=== PATIENT | female | born 1940 | race Hispanic/Latino ===

== ENCOUNTER 2017-02-05 04:41 | Emergency (ER) | payer MEDICARE ==
[2017-02-05 04:57] VITALS: BMI 25.0
--- NOTE | 2017-02-05 05:30 | ED PDOC ---
Arrival/HPI - General Chief Complaint: Trauma Time Seen by Provider: 02/05/17 04:49 Historian: Patient - History of Present Illness Narrative History of Present Illness (Text): 02/05/17 05:25 76 year old female whose past medical history includes hypertension, hyperlipidemia, CAD with stents x6, spinal stenosis, hysterectomy, and left leg edilson implant presents to the Emergency department via EMS s/p mechanical fall [employer]. Patient reports she tripped over her sheets while getting out of bed and hit her lower right side on the nightstand when she fell. She notes right sided abdominal and back pain. She denies any head trauma, LOC, or dizziness. PMD: Dr. Saucedo Time/Duration: Prior to Arrival Symptom Onset: Sudden Symptom Course: Unchanged Context: Tripped Past Medical History - Provider Review Nursing Documentation Reviewed: Yes - Infectious Disease Hx of Infectious Diseases: None - Reproductive Menopause: Yes - Cardiac Hx Cardiac Disorders: Yes Hx Hypertension: Yes - Musculoskeletal/Rheumatological Hx Falls: Yes - Psychiatric Hx Psychophysiologic Disorder: No Hx Anxiety: No Hx Bipolar Disorder: No Hx Depression: No Hx Emotional Abuse: No Hx Hallucinations: No Hx Panic Disorder: No Hx Post Traumatic Stress Disorder: No Hx Psychosis: No Hx Physical Abuse: No Hx Schizophrenia: No Hx Sexual Abuse: No Hx Substance Use: No - Surgical History Hx Cardiac Catheterization: Yes Hx Coronary Stent: Yes - Anesthesia Hx Anesthesia: Yes Hx Anesthesia Reactions: Yes Hx Malignant Hyperthermia: No - Suicidal Assessment Feels Threatened In Home Enviroment: No Family/Social History - Physician Review Nursing Documentation Reviewed: Yes Family/Social History: Unknown Family HX Smoking Status: Never Smoked Hx Alcohol Use: No Hx Substance Use: No Allergies/Home Meds Allergies/Adverse Reactions: Allergies No Known Allergies Allergy (Verified 08/23/15 11:37) Home Medications: Home Meds Medication Instructions Recorded Confirmed Aspirin [Aspir 81] 81 mg PO DAILY 11/02/12 04/02/16 Metoprolol Succinate 25 mg PO BID 11/02/12 04/02/16 Omeprazole 20 mg PO DAILY 08/23/15 04/02/16 Alprazolam [Xanax] 0.25 mg PO HS 04/02/16 04/02/16 Naproxen [Naprosyn] 500 mg PO DAILY 04/02/16 04/02/16 Simvastatin [Simvastatin] 40 mg PO DAILY 04/02/16 04/02/16 Review of Systems - Physician Review All systems were reviewed & negative as marked: Yes - Review of Systems Constitutional: absent: Fevers, Other (no LOC) Respiratory: absent: SOB, Cough Cardiovascular: absent: Chest Pain, Syncope Gastrointestinal: absent: Abdominal Pain, Diarrhea, Nausea, Vomiting Musculoskeletal: Other (+left sided abdominal and back pain) Neurological: absent: Headache, Dizziness Physical Exam Vital Signs Reviewed: Yes Vital Signs Temp Pulse Resp BP Pulse Ox 02/05/17 06:46 98 F 75 19 131/71 99 02/05/17 05:58 98.2 F 90 17 144/68 98 02/05/17 04:57 98.4 F 89 16 136/72 97 Temperature: Afebrile Blood Pressure: Normal Pulse: Regular Respiratory Rate: Normal Appearance: Positive for: Well-Appearing, Non-Toxic, Comfortable Pain Distress: None Mental Status: Positive for: Alert and Oriented X 3 - Systems Exam Head: Present: Atraumatic, Normocephalic Pupils: Present: PERRL Extroacular Muscles: Present: EOMI Conjunctiva: Present: Normal Mouth: Present: Moist Mucous Membranes Neck: Present: Normal Range of Motion Respiratory/Chest: Present: Clear to Auscultation, Good Air Exchange. No: Respiratory Distress, Accessory Muscle Use, Wheezes, Rales, Rhonchi, Other Cardiovascular: Present: Regular Rate and Rhythm, Normal S1, S2. No: Murmurs, Rub, Gallop Abdomen: Present: Normal Bowel Sounds, Other (+abrasion to right abdomen with tenderness, no active bleeding). No: Tenderness, Distention, Peritoneal Signs, Rebound, Guarding Genitourinary/Pelvic Exam: Present: Adenexal Tenderness Back: Present: Normal Inspection, Other (+abrasion to right posterior with tenderness, no active bleeding) Upper Extremity: Present: Normal Inspection. No: Cyanosis, Edema Lower Extremity: Present: Normal Inspection. No: Edema Neurological: Present: GCS=15, CN II-XII Intact, Speech Normal Skin: Present: Warm, Dry, Normal Color, Abrasion (see: skin and back). No: Rashes Psychiatric: Present: Alert, Oriented x 3, Normal Insight, Normal Concentration Medical Decision Making ED Course and Treatment: 02/05/17 05:35 Impression: 76 year old female s/p mechanical fall. Physical exam revealed abrasion and tenderness to right abdomen and posterior. Rule out organ injury or fracture. Plan: --CT Abdomen/Pelvis --EKG --Toradol -- Reassess and disposition Prior Visits: Notes and results from previous visits were reviewed. Progress Notes: 02/05/17 07:02 I discussed with patient's PMD Dr. Saucedo her EKG findings. He states these are old findings. Patient denies any chest pain or upper abdominal pain. Patient denies any dizziness or ligtheadedness. CT reviewed with Radiologist. Lung nodules were noted and he states they can be followed up in 3-6 months. There is a comment about possible infectious cause. I discussed this with patient. She states she has Sarcoidosis and knows about these nodules. She denies any fever, shortness of breathe, cough, weakness, bodyaches or any other concerns. Patient was given a copy of her CT to review with her doctor. Patient was able to stand up and walk at her baseline. She walks with a walker. Her daughter will take her home. - Lab Interpretations I have reviewed the lab results: No - RAD Interpretation Radiology Orders: 02/05/17 04:58 ABD & PELVIS W/O PO OR IV CONT [CT] Stat Finding Fastener: Radiologist - EKG Interpretation EKG Interpretation (Text): 02/05/17 05:37 EKG: Ordered, reviewed, and independently interpreted the EKG. Rate : 89 BPM Rhythm : NSR Interpretation : nonspecific ST changes Comparison : similar to previous per patient's PMD Dr. José Saucedo Interpreted by ED Physician: Yes Type: 12 lead EKG Comparison: Similar to previous EKG - Medication Orders Current Medication Orders: Discontinued Medications Ketorolac Tromethamine (Toradol) 30 mg IM STAT STA Stop: 02/05/17 05:00 Last Admin: 02/05/17 05:40 Dose: 30 MG IM Administration Charges Document 02/05/17 05:40 RD (Rec: 02/05/17 05:40 RD [id number]) Injection Site MAR Injection Site Left Deltoid Charges for Administration # of IM Administrations 1 - Scribe Statement The provider has reviewed the documentation as recorded by the Scribe Tracy Baptiste Provider Scribe Attestation: All medical record entries made by the Scribe were at my direction and personally dictated by me. I have reviewed the chart and agree that the record accurately reflects my personal performance of the history, physical exam, medical decision making, and the department course for this patient. I have also personally directed, reviewed, and agree with the discharge instructions and disposition. Disposition/Present on Arrival - Present on Arrival Any Indicators Present on Arrival: No History of DVT/PE: No History of Uncontrolled Diabetes: No Urinary Catheter: No History of Decub. Ulcer: No History Surgical Site Infection Following: Orthopedic Procedures - Disposition Have Diagnosis and Disposition been Completed?: Yes Diagnosis: Fall, Abrasion, Pulmonary nodules, Sarcoidosis Disposition: HOME/ ROUTINE Disposition Time: 07:10 Patient Plan: Discharge Condition: IMPROVED Discharge Instructions (ExitCare): Abrasion (ED) Additional Instructions: Ms Lopez, thank you for letting us take care of you today. Your provider was Dr. Godfrey. You were treated for Tripped and Fall, Abrasion. The emergency medical care you received today was directed at your acute symptoms. If you were prescribed any medication, please fill it and take as directed. It may take several days for your symptoms to resolve. Return to the Emergency Department if your symptoms worsen, do not improve, or if you have any other problems. Please contact your doctor or call one of the physicians/clinics you have been referred to that are listed on the Patient Visit Information form that is included in your discharge packet. Bring any paperwork you were given at discharge with you along with any medications you are taking to your follow up visit. Our treatment cannot replace ongoing medical care by a primary care provider (PCP) outside of the emergency department. Review CT results with your doctor. You will need repeat imagining in 3- 6months. Thank you for allowing the [facility] team to be part of your care today. If you had an X-Ray or CT scan: A Radiologist will review the ED reading if any change in treatment is needed we will contact you. If you had a blood, urine, or wound culture: It will take several days for the results, if any change in treatment is needed we will contact you. If you had an STI test: It will take 48 hours for the results. Please call after 1 week if you have not heard back. Prescriptions: Acetaminophen [Tylenol 325mg tab] 650 mg PO Q4 #60 tab Referrals: Raghav Saucedo MD [Primary Care Provider] - Follow up with primary
--- NOTE | 2017-02-05 06:10 | CT ---
EXAM: CT Abdomen and Pelvis Without Intravenous Contrast. CLINICAL HISTORY: 76 years old, female; Pain; Abdominal pain; Generalized; Additional info: Fall to r low back/side R/O organ injury R/O lumfx TECHNIQUE: Axial computed tomography images of the abdomen and pelvis without intravenous contrast. This CT exam was performed using one or more of the following dose reduction techniques: automated exposure control, adjustment of the mA and/or kV according to patient size, and/or use of iterative reconstruction technique. Coronal and sagittal reformatted images were created and reviewed. COMPARISON: No relevant prior studies available. FINDINGS: Lower thorax: There are mediastinal and bilateral hilar calcified lymph nodes compatible with prior granulomatous exposure. There is associated mediastinal and bilateral hilar lymphadenopathy. Multiple clustered small pulmonary nodules in the right middle lobe and near the right minor fissure. These are most suggestive of an infectious process. There is minimal bibasilar atelectasis. Calcified granuloma in the left lower lobe. There is coronary artery calcification. Small hiatal hernia. Small calcified paraesophageal lymph node near the distal esophagus. ABDOMEN: Liver: There are no focal liver lesions present. Gallbladder and bile ducts: There has been a cholecystectomy. No ductal dilation. Pancreas: Pancreas is partially fatty replaced. No ductal dilation. Spleen: The spleen is normal. Adrenals: The adrenal glands are normal. Kidneys and ureters: The kidneys are normal. No obstructing stones. No hydronephrosis. Stomach and bowel: Stomach is predominantly decompressed. There is severe colonic diverticulosis without convincing evidence for acute diverticulitis. There is mild colonic constipation. There is no evidence of intestinal obstruction. Appendix: The appendix is not visualized but there is no pericecal inflammation to suggest appendicitis. PELVIS: Bladder: Bladder is predominantly decompressed and contains a few tiny gas bubbles. This is most suggestive of recent catheterization. Please correlate clinically. Reproductive: There has been a hysterectomy. ABDOMEN and PELVIS: Intraperitoneal space: There is no evidence of free intraperitoneal fluid. There is no free intraperitoneal air. Bones/joints: There is a screw traversing the left femoral neck presumably securing an old fracture. There are moderate degenerative changes present. There is moderate diffuse osteopenia. There is mild grade 1 retrolisthesis of L1 on L2. No dislocation. Soft tissues: Unremarkable. Vasculature: The aorta demonstrates moderate atherosclerotic calcification. No abdominal aortic aneurysm. Lymph nodes: There is no evidence of lymphadenopathy. IMPRESSION: 1. There are mediastinal and bilateral hilar calcified lymph nodes compatible with prior granulomatous exposure. There is associated mediastinal and bilateral hilar lymphadenopathy. 2. Multiple clustered small pulmonary nodules in the right middle lobe and near the right minor fissure. These are most suggestive of an infectious process. 3. Bladder is predominantly decompressed and contains a few tiny gas bubbles. This is most suggestive of recent catheterization. Please correlate clinically. 4. Additional incidental and/or chronic findings as described.
[2017-02-05 06:47] VITALS: BP 131/71; PULSE 75; RESP 19; TEMP 98; O2SAT 99
--- NOTE | 2017-02-05 10:19 | CARD ---
APPROVED REPORT EKG Measurement Heart [id number] <Conclusion> Normal sinus rhythm Right bundle branch block Possible Inferior infarct, age undetermined Possible lateral wall PA, age unknown Mild ST elevation 2,3,F, V 3 - 6
== END 2017-02-05 06:48 | disposition home or self-care (01) ==
LOC: ED 04:41
DX: R91.8 Other nonspecific abnormal finding of lung field (principal); D86.9 Sarcoidosis, unspecified; S30.811A Abrasion of abdominal wall, initial encounter; S30.810A Abrasion of lower back and pelvis, initial encounter; W06.XXXA Fall from bed, initial encounter; I10 Essential (primary) hypertension; I25.10 Atherosclerotic heart disease of native coronary artery without angina pectoris; E78.5 Hyperlipidemia, unspecified
CPT/HCPCS: 74176; 93005; 96372; 99284; J1885

== ENCOUNTER 2017-10-25 21:17 | Observation (INO) | payer MEDICARE ==
[2017-10-25 21:17] VITALS: BMI 25.0
[2017-10-25] MEDS ORDERED: Sodium Chloride 0.9% 1,000 ML IV STA (21:44)
[2017-10-25] MEDS ORDERED: Morphine 2 mg/ml ISec IVP STA (21:55)
--- NOTE | 2017-10-25 22:00 | ED PDOC ---
Arrival/HPI - General Chief Complaint: Abdominal Pain Time Seen by Provider: 10/25/17 21:44 Historian: Patient - History of Present Illness Narrative History of Present Illness (Text): 10/25/17 21:54 A 77 year old female, whose past medical history includes hypertension, hyperlipidemia, CAD with 6 stents, s/p total abdominal hysterectomy, cholecystectomy, appendectomy and diverticulitis, presents to the emergency department complaining of left lower quadrant and suprapubic pain for 1 day. Patient denies any relieving or exacerbating factors. She notes 2 episodes of non-bilious non-bloody vomiting but states she has been able to tolerate PO intake since. Patient denies any fever, chills, chest pain, shortness of breath or any other complaints. Time/Duration: Other (1 day) Symptom Course: Unchanged Quality: Other Context: Home Past Medical History - Provider Review Nursing Documentation Reviewed: Yes - Infectious Disease Hx of Infectious Diseases: None - Cardiac Hx Cardiac Disorders: Yes Hx Hypertension: Yes Other/Comment: 6 stents - Pulmonary Hx Respiratory Disorders: No - Neurological Hx Neurological Disorder: No - HEENT Hx HEENT Disorder: No - Renal Hx Renal Disorder: No - Endocrine/Metabolic Hx Endocrine Disorders: No - Hematological/Oncological Hx Blood Disorders: Yes Hx Blood Transfusions: Yes Hx Blood Transfusion Reaction: No Other/Comment: hx of vaginal hemm. - Integumentary Hx Dermatological Disorder: No - Musculoskeletal/Rheumatological Hx Falls: Yes - Gastrointestinal Hx Clostridium Difficile: No - Psychiatric Hx Psychophysiologic Disorder: No Hx Anxiety: No Hx Bipolar Disorder: No Hx Depression: No Hx Emotional Abuse: No Hx Hallucinations: No Hx Panic Disorder: No Hx Post Traumatic Stress Disorder: No Hx Psychosis: No Hx Physical Abuse: No Hx Schizophrenia: No Hx Sexual Abuse: No Hx Substance Use: No - Surgical History Hx Appendectomy: Yes Hx Cardiac Catheterization: Yes Hx Cholecystectomy: Yes Hx Coronary Stent: Yes (x6) Hx Musculoskeletal Surgery: Yes (L hip fx with edilson placed) - Anesthesia Hx Anesthesia: Yes Hx Anesthesia Reactions: Yes Hx Malignant Hyperthermia: No - Suicidal Assessment Feels Threatened In Home Enviroment: No Family/Social History - Physician Review Nursing Documentation Reviewed: Yes Family/Social History: No Known Family HX Smoking Status: Never Smoked Hx Alcohol Use: No Hx Substance Use: No Allergies/Home Meds Allergies/Adverse Reactions: Allergies No Known Allergies Allergy (Verified 08/23/15 11:37) Home Medications: Home Meds Medication Instructions Recorded Confirmed Aspirin [Aspir 81] 81 mg PO DAILY 11/02/12 10/25/17 Metoprolol Succinate 25 mg PO BID 11/02/12 10/25/17 Omeprazole 20 mg PO DAILY 08/23/15 10/25/17 Alprazolam [Xanax] 0.25 mg PO HS 04/02/16 10/25/17 Naproxen [Naprosyn] 500 mg PO DAILY 04/02/16 10/25/17 Simvastatin [Simvastatin] 40 mg PO DAILY 04/02/16 10/25/17 Review of Systems - Physician Review All systems were reviewed & negative as marked: Yes - Review of Systems Constitutional: absent: Fevers, Night Sweats Respiratory: absent: SOB Cardiovascular: absent: Chest Pain Gastrointestinal: Abdominal Pain, Vomiting Physical Exam Appearance: Positive for: Well-Appearing, Non-Toxic, Comfortable Pain Distress: None Mental Status: Positive for: Alert and Oriented X 3 - Systems Exam Head: Present: Atraumatic, Normocephalic Pupils: Present: PERRL Extroacular Muscles: Present: EOMI Conjunctiva: Present: Normal Mouth: Present: Moist Mucous Membranes Neck: Present: Normal Range of Motion Respiratory/Chest: Present: Clear to Auscultation, Good Air Exchange. No: Respiratory Distress, Accessory Muscle Use Cardiovascular: Present: Murmurs (Systolic ejection murmur at sternal borders), Normal S1, S2 Abdomen: Present: Tenderness (LLQ tenderness to palpation), Normal Bowel Sounds. No: Distention, Peritoneal Signs, Rebound, Guarding Back: Present: Normal Inspection Upper Extremity: Present: Normal Inspection. No: Cyanosis, Edema Lower Extremity: Present: Edema (trace edema bilaterally), NORMAL PULSES, Tenderness (Osteoarthritic pain). No: CALF TENDERNESS Neurological: Present: GCS=15, CN II-XII Intact, Speech Normal Skin: Present: Warm, Dry, Normal Color. No: Rashes Psychiatric: Present: Alert, Oriented x 3, Normal Insight, Normal Concentration Medical Decision Making ED Course and Treatment: 10/25/17 21:54 Impression: A 77 year old female with LLQ and suprapubic pain Plan: -- Abdomen CT -- Abdomen xray -- Chest xray -- EKG -- Labs -- Blood and Urine culture -- Urinalysis -- Morphine, Zofran and IV fluids -- Reassess and disposition Progress Notes: - Lab Interpretations I have reviewed the lab results: Yes - RAD Interpretation Radiology Orders: 10/25/17 21:44 ABD 2 VIEWS (FLAT/UP OR DECUB) [RAD] Stat 10/25/17 21:45 CHEST PORTABLE [RAD] Stat - Medication Orders Current Medication Orders: Sodium Chloride (Sodium Chloride 0.9%) 1,000 mls @ 100 mls/hr IV .Q10H STA Stop: 10/26/17 07:43 Discontinued Medications Ondansetron HCl (Zofran Inj) 4 mg IVP STAT STA Stop: 10/25/17 21:45 Disposition/Present on Arrival - Present on Arrival History of DVT/PE: No History of Uncontrolled Diabetes: No Urinary Catheter: No History of Decub. Ulcer: No History Surgical Site Infection Following: Orthopedic Procedures - Disposition
[2017-10-25] MEDS ORDERED: Iohexol 350 MG/100 ML VIAL ONE (22:07)
[2017-10-25] MEDS ORDERED: Iohexol 240 (50 ml) ONE (22:07)
[2017-10-25 22:29] LABS: BASO # 0.02 K/mm3 (0.0-2.0); BASO % 0.3 % (0.0-3.0); EOS # 0.2 (0.0-0.7); EOS % 2.8 % (1.5-5.0); GRAN # 4.4 (1.4-6.5); GRAN % 68.3 % (50.0-68.0); HEMATOCRIT 31.8 % (36.0-48.0); LYMPH # 1.1 (1.2-3.4); LYMPH % 17.1 % (22.0-35.0); MEAN CELL VOLUME 92.4 fl (80.0-105.0); MEAN CORPUSCULAR HEMOGLOBIN 31.7 pg (25.0-35.0); MEAN CORPUSCULAR HGB CONC 34.3 g/dl (31.0-37.0); MEAN PLATELET VOLUME 9.3 fl (7.0-11.0); MONO # 0.7 (0.1-0.6); MONO % 11.5 % (1.0-6.0); RED CELL DISTRIBUTION WIDTH 12.9 % (11.5-14.5); WHITE BLOOD COUNT 6.4 10^3/ul (4.5-11.0)
[2017-10-25 22:38] LABS: ALB/GLOB RATIO 1.3 (1.1-1.8); ALKALINE PHOSPHATASE 120 U/L (38-126); ALT/SGPT 24 U/L (7-56); AMYLASE 71 U/L (35-125); AST/SGOT 29 U/L (14-36); BILIRUBIN,TOTAL 0.8 mg/dL (0.2-1.3); BLOOD UREA NITROGEN 23 mg/dL (7-21); CALCIUM 9.2 mg/dL (8.4-10.5); CARBON DIOXIDE 24 mmol/L (21-33); CHLORIDE 103 mmol/L (98-107); GFR AFRICAN-AMERICAN 35; GLUCOSE,RANDOM 136 mg/dL (70-110); LIPASE 58 U/L (23-300); POTASSIUM 4.3 mmol/L (3.6-5.0); SODIUM 137 mmol/L (132-148); TOTAL PROTEIN 6.5 g/dL (5.8-8.3)
[2017-10-25 22:41] LABS: INR 1.15 (0.93-1.08); PARTIAL THROMBOPLASTIN TIME 28.8 Seconds (25.1-36.5)
[2017-10-25 22:48] LABS: TROPONIN I < 0.01 ng/mL
[2017-10-25 23:10] VITALS: TEMP 97.7
[2017-10-26 00:29] LABS: PH,URINE 6.5 (4.7-8.0); URINE BILIRUBIN NEGATIVE (NEGATIVE); URINE BLOOD TRACE-INTACT (NEGATIVE); URINE GLUCOSE (UA) NEGATIVE (NEGATIVE); URINE KETONE NEGATIVE (NEGATIVE); URINE LEUKOCYTE ESTERASE TRACE Leu/uL (NEGATIVE); URINE PROTEIN NEGATIVE mg/dL (<30 mg/dL); URINE UROBILINOGEN 0.2 E.U./dL (<1 E.U./dL)
[2017-10-26 00:33] LABS: URINE APPEARANCE CLEAR (CLEAR); URINE COLOR YELLOW (YELLOW)
[2017-10-26 00:41] LABS: URINE EPITHELIAL CELLS 0 - 2 /hpf (0-5); URINE RBC 0 - 2 /hpf (0-2); URINE WBC 0 - 2 /hpf (0-6)
--- NOTE | 2017-10-26 01:03 | ED PDOC ---
Physical Exam Vital Signs Temp Pulse Resp BP Pulse Ox 10/26/17 00:00 68 16 169/85 H 96 10/25/17 23:00 84 18 153/81 H 95 10/25/17 21:17 97.7 F 73 18 145/88 99 Medical Decision Making ED Course and Treatment: 10/25/17 23:00 Case endorsed to me by Dr. Obrien. Pending CT scan, re-evaluation, and final disposition. Pt presented for LLQ and suprapubic pain with vomiting. 10/26/17 03:09 reviewed radiology, CT Abdomen and Pelvis shows: Limitations: Lack of intravenous contrast. Lower thorax: Calcified mediastinal and hilar lymph nodes. Minimal atelectasis/ scarring. LEFT lower lobe calcified granuloma. Coronary artery calcifications. Small hiatal hernia. ABDOMEN: Liver: Unremarkable. No mass. Gallbladder and bile ducts: Cholecystectomy. No ductal dilation. Pancreas: No ductal dilation. No mass. Spleen: No splenomegaly. Adrenals: No mass. Kidneys and ureters: Mild/moderate scarring of kidneys. No renal calculi. No hydronephrosis. Stomach and bowel: Multiple scattered diverticula within colon. Mild mural thickening short segment of proximal sigmoid colon. Minimal stranding within adjacent fat. No obstruction. Appendix: No findings to suggest acute appendicitis. PELVIS: Bladder: Minimal air within lumen. Reproductive: Hysterectomy. ABDOMEN and PELVIS: Intraperitoneal space: No significant fluid collection. No free air. Bones/joints: Degenerative changes of spine. Postsurgical changes of LEFT femur. No acute fracture. Soft tissues: Small umbilical hernia containing fat. Vasculature: Mild atherosclerotic disease. No aneurysm. Lymph nodes: No pathologically enlarged lymph nodes. IMPRESSION: 1. Findings compatible with acute diverticulitis of sigmoid colon. Recommend endoscopy following resolution. 2. Air within bladder lumen. DDX: Recent instrumentation or cystitis. 3. Incidental/non-acute findings are described above. 10/26/17 03:[address] Alethea Vasquez, who is aware and agrees with plan. Accepts pt in to his service. Pt will go to [facility] observation for diverticulitis. - Lab Interpretations Lab Results: 10/25/17 22:23 10/25/17 22:23 Lab Results 10/26/17 00:00: Urine Color Yellow, Urine Appearance Clear, Urine pH 6.5, Ur Specific [place] <= 1.005, Urine Protein Negative, Urine Glucose (UA) Negative, Urine Ketones Negative, Urine Blood Trace-intact H, Urine Nitrate Negative, Urine Bilirubin Negative, Urine Urobilinogen 0.2, Ur Leukocyte Esterase Trace H , Urine RBC 0 - 2, Urine WBC 0 - 2, Ur Epithelial Cells 0 - 2 10/25/17 22:55: Lactic Acid 0.6 L 10/25/17 22:23: Sodium 137, Potassium 4.3, Chloride 103, Carbon Dioxide 24, Anion Gap 14, BUN 23 H, Creatinine 1.7 H, Est GFR ( Amer) 35, Est GFR ( Non-Af Amer) 29, Random Glucose 136 H, Calcium 9.2, Total Bilirubin 0.8, AST 29 , ALT 24, Alkaline Phosphatase 120, Lactate Dehydrogenase 456, Total Creatine Kinase 54, Troponin I < 0.01, Total Protein 6.5, Albumin 3.7, Globulin 2.8, Albumin/Globulin Ratio 1.3, Amylase 71, Lipase 58 10/25/17 22:23: PT 12.6 H, INR 1.15 H, APTT 28.8 10/25/17 22:23: WBC 6.4, RBC 3.44 L, Hgb 10.9 L, Hct 31.8 L, MCV 92.4, MCH 31.7 , MCHC 34.3, RDW 12.9, Plt Count 243, MPV 9.3, Gran % 68.3 H, Lymph % (Auto) 17.1 L, [place] % (Auto) 11.5 H, Eos % (Auto) 2.8, Baso % (Auto) 0.3, Gran # 4.40, Lymph # 1.1 L, [place] # 0.7 H, Eos # 0.2, Baso # 0.02 - RAD Interpretation Radiology Orders: 10/25/17 21:44 ABD 2 VIEWS (FLAT/UP OR DECUB) [RAD] Stat 10/25/17 21:45 CHEST PORTABLE [RAD] Stat 10/25/17 21:54 ABD & PELVIS PO CONTRAST ONLY [CT] Stat Mail List Processor: Radiologist - Medication Orders Current Medication Orders: Acetaminophen (Tylenol 325mg Tab) 650 mg PO Q4H PRN PRN Reason: Fever >100.5 F Sodium Chloride (Sodium Chloride 0.9%) 1,000 mls @ 100 mls/hr IV .Q10H STA Stop: 10/26/17 07:43 Last Admin: 10/25/17 23:12 Dose: 100 mls/hr eMAR Start Stop Document 10/25/17 23:12 EQ (Rec: 10/25/17 23:12 EQ [id number]) Intravenous Solution Start Date 10/25/17 Start Time 23:12 Metronidazole (Flagyl) 500 mg in 100 mls @ 100 mls/hr IVPB STAT STA PRN Reason: Protocol Stop: 10/26/17 04:20 Ceftriaxone Sodium (Rocephin 1 Gram Ivpb (D5w)) 1 gm in 100 mls @ 200 mls/hr IVPB STAT KRISTEN PRN Reason: Protocol Sodium Chloride (Sodium Chloride 0.9%) 1,000 mls @ 100 mls/hr IV .Q10H STA Stop: 10/26/17 13:21 Morphine Sulfate (Morphine) 2 mg IVP Q4H PRN PRN Reason: Pain, moderate (4-7) Ondansetron HCl (Zofran Inj) 4 mg IVP Q6H PRN PRN Reason: Nausea/Vomiting Discontinued Medications Morphine Sulfate (Morphine) 2 mg IVP STAT STA Stop: 10/25/17 21:56 Last Admin: 10/25/17 23:13 Dose: 2 mg MAR Pain Assessment Document 10/25/17 23:13 EQ (Rec: 10/25/17 23:13 EQ [id number]) Pain Reassessment Is this a pain reassessment? No Sleep Is patient sleeping during reassessment? No Presence of Pain Presence of Pain Yes Pain Scale Used Pain Scale Used Numeric IVP Administration Document 10/25/17 23:13 EQ (Rec: 10/25/17 23:13 EQ [id number]) Charges for Administration # of IVP Administrations 1 Ondansetron HCl (Zofran Inj) 4 mg IVP STAT STA Stop: 10/25/17 21:45 Last Admin: 10/25/17 23:12 Dose: 4 mg IVP Administration Document 10/25/17 23:12 EQ (Rec: 10/25/17 23:12 EQ [id number] Charges for Administration # of IVP Administrations 1 Disposition/Present on Arrival - Present on Arrival Any Indicators Present on Arrival: No History of DVT/PE: No History of Uncontrolled Diabetes: No Urinary Catheter: No History of Decub. Ulcer: No History Surgical Site Infection Following: Orthopedic Procedures - Disposition Have Diagnosis and Disposition been Completed?: Yes Diagnosis: Diverticulitis Disposition: HOSPITALIZED Disposition Time: 03:20 Condition: FAIR
--- NOTE | 2017-10-26 03:07 | CT ---
EXAM: CT Abdomen and Pelvis With Intravenous Contrast CLINICAL HISTORY: 77 years old, female; Pain; Abdominal pain; Generalized; Additional info: R/O diverticulitis TECHNIQUE: Axial computed tomography images of the abdomen and pelvis with intravenous contrast. All CT scans at this facility use one or more dose reduction techniques, viz.: automated exposure control; ma/kV adjustment per patient size (including targeted exams where dose is matched to indication; i.e. head); or iterative reconstruction technique. Coronal and sagittal reformatted images were created and reviewed. CONTRAST: 50 mL of omni 240 administered intravenously. COMPARISON: CT - ABD PELVIS W/O PO OR IV CONT 2017-02-05 05:42 FINDINGS: Limitations: Lack of intravenous contrast. Lower thorax: Calcified mediastinal and hilar lymph nodes. Minimal atelectasis/scarring. LEFT lower lobe calcified granuloma. Coronary artery calcifications. Small hiatal hernia. ABDOMEN: Liver: Unremarkable. No mass. Gallbladder and bile ducts: Cholecystectomy. No ductal dilation. Pancreas: No ductal dilation. No mass. Spleen: No splenomegaly. Adrenals: No mass. Kidneys and ureters: Mild/moderate scarring of kidneys. No renal calculi. No hydronephrosis. Stomach and bowel: Multiple scattered diverticula within colon. Mild mural thickening short segment of proximal sigmoid colon. Minimal stranding within adjacent fat. No obstruction. Appendix: No findings to suggest acute appendicitis. PELVIS: Bladder: Minimal air within lumen. Reproductive: Hysterectomy. ABDOMEN and PELVIS: Intraperitoneal space: No significant fluid collection. No free air. Bones/joints: Degenerative changes of spine. Postsurgical changes of LEFT femur. No acute fracture. Soft tissues: Small umbilical hernia containing fat. Vasculature: Mild atherosclerotic disease. No aneurysm. Lymph nodes: No pathologically enlarged lymph nodes. IMPRESSION: 1. Findings compatible with acute diverticulitis of sigmoid colon. Recommend endoscopy following resolution. 2. Air within bladder lumen. DDX: Recent instrumentation or cystitis. 3. Incidental/non-acute findings are described above.
[2017-10-26] MEDS ORDERED: metroNIDAZOLE IV 500 mg/100 ml 500 MG/100 ML BAG IVPB STA (03:21)
[2017-10-26] MEDS ORDERED: Sodium Chloride 0.9% 1,000 ML IV STA (03:22)
[2017-10-26] MEDS ORDERED: Morphine 2 mg/ml ISec IVP PRN (03:23)
[2017-10-26] MEDS ORDERED: cefTRIAXone 1 gm 1 GM/100 ML BAG IVPB SCH (03:30)
[2017-10-26 04:09] VITALS: O2SAT 99
[2017-10-26 07:24] VITALS: BP 147/70; PULSE 62; RESP 20
[2017-10-26] MEDS ORDERED: Metoprolol Succinate 25 mg XL Tab PO SCH (08:00)
[2017-10-26 08:20] LABS: BASO # 0.03 K/mm3 (0.0-2.0); BASO % 0.7 % (0.0-3.0); EOS # 0.2 (0.0-0.7); GRAN # 2.43 (1.4-6.5); GRAN % 53.7 % (50.0-68.0); HEMATOCRIT 29.4 % (36.0-48.0); LYMPH # 1.2 (1.2-3.4); LYMPH % 26.8 % (22.0-35.0); MEAN CELL VOLUME 92.2 fl (80.0-105.0); MEAN CORPUSCULAR HEMOGLOBIN 31.3 pg (25.0-35.0); MEAN PLATELET VOLUME 9.1 fl (7.0-11.0); MONO # 0.7 (0.1-0.6); MONO % 14.8 % (1.0-6.0); RED CELL DISTRIBUTION WIDTH 12.8 % (11.5-14.5); WHITE BLOOD COUNT 4.5 10^3/ul (4.5-11.0)
[2017-10-26 08:42] LABS: ALB/GLOB RATIO 1.2 (1.1-1.8); BILIRUBIN,TOTAL 0.7 mg/dL (0.2-1.3); CALCIUM 8.9 mg/dL (8.4-10.5); POTASSIUM 4.5 mmol/L (3.6-5.0); TOTAL PROTEIN 5.9 g/dL (5.8-8.3)
--- NOTE | 2017-10-26 09:29 | RAD ---
HISTORY: examine gas pattern COMPARISON: CT abdomen and pelvis 02/05/2017 and same-day current CT abdomen and pelvis FINDINGS: BOWEL: Orally administered from prior CT abdomen and pelvis 10/26/2017 -same-day present. Bowel-gas pattern nonspecific. No obstruction suggested no free air seen BONES: Lumbar spondylosis OTHER FINDINGS: Cholecystectomy clips Extensive hilar and mediastinal calcified lymph nodes Left femoral dynamic compression screw and lateral sideplate IMPRESSION: No mechanical obstruction. Nonspecific bowel gas pattern - with contrast from CT noted. No free air Extensive calcified hilar and mediastinal nodes consistent with granulomatous disease
--- NOTE | 2017-10-26 09:43 | RAD ---
HISTORY: routine med exam COMPARISON: 08/28/2015 FINDINGS: LUNGS: No consolidation. Lung volumes-normal. Five-6 mm left lower lung zone granuloma - stable since 2014 PLEURA: No significant pleural effusion identified, no pneumothorax apparent. CARDIOVASCULAR: Borderline cardiomegaly. No pulmonary venous congestion. Calcified hilar and mediastinal lymph nodes- OSSEOUS STRUCTURES: Thoracic spondylosis. Lateral shoulder arthrosis right glenohumeral joint most notable VISUALIZED UPPER ABDOMEN: Normal. OTHER FINDINGS: None. IMPRESSION: No acute cardiopulmonary pathology. Chronic granulomatous disease Bilateral shoulder arthrosis right greater than left. Thoracic spondylosis
[2017-10-26] MEDS ORDERED: Ciprofloxacin 400mg/200ml D5W 400 MG/200 ML BAG IVPB SCH (10:00)
--- NOTE | 2017-10-26 13:22 | HP ---
HISTORY OF PRESENT ILLNESS: The patient is a 77 year old woman with a past medical history of diverticulosis who presented to [facility] ED with a 1 day history of sudden onset of left lower quadrant abdominal pain associated with nausea, loose stools and decreased p.o. intake. The patient reports being in her usual state of health until the onset of symptoms. She denies melena, hematochezia, or bright red blood per rectum associated with her symptoms. Given her underlying history of diverticulosis with prior diverticular bleed, she opted for ED evaluation. Upon arrival to the ED she was noted to be afebrile and hemodynamically stable but in moderate distress secondary to left lower quadrant abdominal pain. Routine laboratory studies were largely unremarkable. A CT of the abdomen and pelvis confirmed sigmoid diverticulitis. She was started on IV fluids, IV antibiotics and admitted to the [facility] for continued management of acute sigmoid diverticulitis. 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 PAST SURGICAL HISTORY: Intramedullary nailing of the left hip. ALLERGIES: NO KNOWN DRUG ALLERGIES. MEDICATIONS: Aspirin 81 mg p.o. daily, Simvastatin 40 mg p.o. daily, Toprol-XL 25 mg p.o. daily, Omeprazole 20 mg p.o. daily, Xanax 0.25 mg p.o. q.h.s. and Naprosyn 500 mg p.o. b.i.d. p.r.n. pain. FAMILY HISTORY: Noncontributory. SOCIAL HISTORY: The patient denies any toxic habits. REVIEW OF SYSTEMS: A 14-point review of systems is negative except as per HPI. PHYSICAL EXAMINATION: VITAL SIGNS: Temperature 97.7, pulse 62, blood pressure 147/70, respiratory rate 20, oxygen saturation 99% on room air. GENERAL: No apparent distress. HEENT: PERRL, EOMI. No scleral icterus. No conjunctival pallor. NECK: Supple with full range of motion. No JVD. No bruits. LUNGS: Clear to auscultation. CARDIOVASCULAR: Regular rate and rhythm. Normal S1 and S2. ABDOMEN: Normoactive bowel sounds, soft, nondistended, mild tenderness to LLQ with voluntary guarding. No rigidity. No tympany. EXTREMITIES: No edema. NEUROLOGIC: Awake, alert, and oriented x3. No focal motor deficits. LABORATORY DATA: WBC 6.4, hemoglobin 11, hematocrit 32, platelets 243. Sodium 137, potassium 4.3, chloride 103, bicarbonate 24, BUN 23, creatinine 1.7 , glucose 136, lactate 0.6. Troponin less than 0.01. IMAGING STUDIES: CT of the abdomen and pelvis with p.o. contrast demonstrated mild mural thickening of the proximal sigmoid colon compatible with acute diverticulitis. ASSESSMENT: The patient is a 77 year old woman with diverticulosis and history of diverticular bleed, CAD s/p PCI with stent placement, hypertension, hyperlipidemia and anxiety disorder who presented for evaluation of a1 day history of left lower quadrant abdominal pain and was admitted for management of acute sigmoid colon diverticulitis. PLAN: 1. Diverticulitis of the sigmoid colon, acute. Continue with Ciprofloxacin 400 mg IV q.12 and Flagyl 500 mg p.o. q.8 hours. Continue with IV fluid hydration. The patient is tolerating a liquid diet and reports near-resolution of her symptoms. Dr. Cage of GI has been consulted for further evaluation and recommendations. 2. CAD s/p PCI with stent placement. Continue Aspirin 81 mg p.o. daily, Toprol -XL 25 mg p.o. daily, and Lipitor 40 mg p.o. daily (simvastatin is not on formulary). 3. Hyperlipidemia. Continue Lipitor 40 mg p.o. daily. 4. Hypertension. Blood pressure controlled. Continue Toprol-XL 25 mg p.o. daily. 5. GERD. Continue Protonix 40 mg p.o. daily. 6. Anxiety. Continue Xanax 0.25 mg p.o. q.h.s. 7. Prophylaxis. Continue Protonix 40 mg p.o. daily for GI prophylaxis. DVT prophylaxis not indicated as patient is ambulatory. CODE STATUS: Full code. Ramirez Vasquez MD MTDD
--- NOTE | 2017-10-26 13:45 | CARD ---
APPROVED REPORT EKG Measurement Heart [id number] 150P27 [id number] <Conclusion> Normal sinus rhythm with sinus arrhythmia RBBB.
--- NOTE | 2017-10-26 23:13 | CON ---
DATE: 10/26/2017 REQUESTING PHYSICIAN: Dr. Ramirez Vasquez. REASON FOR CONSULT: I have been asked to see this 77-year-old female with known coronary artery disease, status post multiple coronary artery stent placements, who comes to the hospital with 2 days of left lower quadrant abdominal pain associated with nausea and vomiting. She denies any fevers, chills, pneumaturia. The patient has a history of GI bleeding secondary to presumed diverticulosis. Over 5 years ago, she had an endoscopy and colonoscopy at that time. She currently denies any rectal bleeding, melena, chest pain, or shortness of breath. She denies any fevers or chills or pneumaturia. CT scan of the abdomen and pelvis performed in the emergency room shows some mild mural thickening with some stranding around the sigmoid colon with no evidence of abscess or free air. There is a spicule of air in the urinary bladder. The patient denies hematuria, dysuria, urgency, or frequency. PAST MEDICAL HISTORY: Again notable for coronary artery disease with placement of six coronary stents, hypertension, diverticulosis, lower GI bleeding, hyperlipidemia. PAST SURGICAL HISTORY: Notable for appendectomy, cholecystectomy, hysterectomy. SOCIAL HISTORY: She denies cigarette smoking or alcohol use. FAMILY HISTORY: Noncontributory. HOME MEDICATIONS: Include metoprolol 25 mg twice a day, baby aspirin, omeprazole 20 mg once a day, alprazolam 0.25 mg at bedtime, Naprosyn 500 mg as needed for pain, simvastatin 40 mg once a day. REVIEW OF SYSTEMS: The 14-point review of systems is notable for left lower quadrant abdominal pain, nausea, and vomiting. PHYSICAL EXAMINATION: GENERAL: A well-developed female lying in bed, in no acute distress. VITAL SIGNS: Reveal temperature of 97.7, blood pressure 147/70, heart rate is 62. HEENT: Reveal sclerae to be white. Conjunctivae pink. NECK: Supple. CHEST/LUNGS: Clear. HEART: Reveals a regular rate and rhythm. ABDOMEN: Soft. Mild left lower quadrant tenderness. There is no rebound. There is no guarding. EXTREMITIES: Show no edema. LABORATORY DATA: Reveal white blood cell count 4.5, hemoglobin of 10. Chemistries reveal BUN 20, creatinine 1.5, blood sugar of 114. CT scan of the abdomen and pelvis reveal mural thickening of the sigmoid colon with extensive diverticulosis and some streaking of the pericolonic mesentery with a spicule of air in the urinary bladder. IMPRESSION: Sigmoid diverticulitis. Clinically, the patient does not have a colovesical fistula. She denies any pneumaturia. Her abdominal pain is less since her hospitalization. She tolerated liquid food. RECOMMENDATIONS: 1. Advance to low residue diet as tolerated. 2. Continue p.o. antibiotics for 14 days. 3. I will see the patient as an outpatient and arrange for an elective colonoscopy in about 6 to 8 weeks once her diverticulitis cools down. Raghav Cage MD
[2017-10-27] MEDS ORDERED: Pantoprazole 40 mg EC Tab PO SCH (06:00)
--- NOTE | 2017-10-29 05:24 | DS ---
ADMITTING DIAGNOSIS: Acute diverticulitis of the sigmoid colon. DISCHARGE DIAGNOSIS: Acute diverticulitis of the sigmoid colon. 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 CONSULTATIONS: Dr. Cage (Gastroenterology). IMAGING STUDIES: 1. Chest x-ray which demonstrated no acute pathology. 2. Abdominal x-ray which demonstrated no acute pathology. 3. CT of the abdomen and pelvis with p.o. contrast which demonstrated findings consistent with acute diverticulitis of the sigmoid colon. HISTORY OF PRESENT ILLNESS: The patient is a 77 year old woman with a past medical history of diverticulosis who presented to the [facility] ED with a 1 day history of sudden onset of left lower quadrant abdominal pain associated with nausea, loose stools and decreased p.o. intake. The patient reports being in her usual state of health until onset of symptoms. She denies melena, hematochezia or bright red blood per rectum associated with her symptoms. Given her underlying history of diverticulosis with prior diverticular bleed, she opted for ED evaluation. Upon arrival to the ED she was noted to be afebrile and hemodynamically stable but in moderate distress secondary to left lower quadrant abdominal pain. Routine laboratory studies were largely unremarkable. A CT of the abdomen and pelvis confirmed sigmoid diverticulitis. She was started on IV fluids, IV antibiotics and admitted to the general medical [facility] for continued management of sigmoid diverticulitis. HOSPITAL COURSE: Upon admission to the general medical [facility] the patient was noted to have rapid and significant improvement in her presenting symptoms. Her diet was advanced from a liquid diet to a regular diet which she tolerated without difficulty and after evaluation with Dr. Cage of GI she was cleared for discharge to home to complete a course of oral antibiotics. CONDITION: Good, improved. DISPOSITION: Home. DISCHARGE MEDICATIONS: Aspirin 81 mg p.o. daily; Simvastatin 40 mg p.o. daily; Toprol-XL 25 mg p.o. daily; Omeprazole 20 mg p.o. daily; Xanax 0.25 mg p.o. q.h.s.; Naprosyn 550 mg p.o. b.i.d. p.r.n. pain; and Ciprofloxacin 500 mg p.o. b.i.d. (to complete 10- day course); and Flagyl 500 mg p.o. t.i.d. (to complete 10-day course). DISCHARGE INSTRUCTIONS: The patient was advised to adhere to a diet as advised by her PMD and Dr. Cage of GI. She was also advised that if she has any recurrence of her symptoms or any development of severe abdominal pain, melena, hematochezia, intractable nausea or vomiting, to present to her PMD or to the nearest ED immediately. FOLLOWUP: The patient is to follow up with her PMD within 1 week of discharge. The patient is to follow up with Dr. Cage of GI as scheduled. Ramirez Vasquez MD MTDD
== END 2017-10-26 16:35 | disposition home or self-care (01) ==
LOC: ED 21:17 → ERH 10-26 03:20 → 3RNO 10-26 04:31
PROVIDERS: ADMIT Student in an Organized Health Care Education/Training Program; ATTEND Student in an Organized Health Care Education/Training Program
DX: K57.32 Diverticulitis of large intestine without perforation or abscess without bleeding (principal); K21.9 Gastro-esophageal reflux disease without esophagitis; I25.10 Atherosclerotic heart disease of native coronary artery without angina pectoris; I10 Essential (primary) hypertension; E78.5 Hyperlipidemia, unspecified; M48.00 Spinal stenosis, site unspecified; F41.9 Anxiety disorder, unspecified; Z95.5 Presence of coronary angioplasty implant and graft; Z79.82 Long term (current) use of aspirin
CPT/HCPCS: 71010; 74020; 74176; 80053; 81001; 82150; 82550; 83605; 83615; 83690; 84484; 85025; 85610; 85730; 87040; 87086; 93005; 96365; 96366; 96367; 96375; 99284; G0378; J0696; J0744; J2270; J2405; J7040; Q9966

== ENCOUNTER 2017-10-26 23:26 | Observation (INO) | payer MEDICARE ==
[2017-10-26 23:26] VITALS: BMI 25.0
--- NOTE | 2017-10-26 23:49 | ED PDOC ---
Arrival/HPI - General Chief Complaint: Shortness Of Breath Time Seen by Provider: 10/26/17 23:31 Historian: Patient - History of Present Illness Narrative History of Present Illness (Text): 10/26/17 23:48 A 77 year old female, whose past medical history includes hypertension, CAD with 6 stents, diverticulitis, s/p abdominal hysterectomy, appendectomy and cholecystectomy and hyperlipidemia, was brought in by EMS to the emergency department complaining of nausea. Patient was seen in the emergency department yesterday and was admitted for diverticulitis. Patient was discharged today with two medications, and after taking Flagyl, patient felt sick to her stomach. Patient denies any fever, headache, dizziness or any other complaints at this time. PMD: Dr. Seymour Vasquez Symptom Onset: Sudden Symptom Course: Unchanged Activities at Onset: Rest Context: Home Past Medical History - Provider Review Nursing Documentation Reviewed: Yes - Infectious Disease Hx of Infectious Diseases: None - Cardiac Hx Cardiac Disorders: Yes Hx Hypertension: Yes Other/Comment: 6 stents - Pulmonary Hx Respiratory Disorders: No - Neurological Hx Neurological Disorder: No - HEENT Hx HEENT Disorder: No - Renal Hx Renal Disorder: No - Endocrine/Metabolic Hx Endocrine Disorders: No - Hematological/Oncological Hx Blood Disorders: Yes Other/Comment: hx of vaginal hemm. - Integumentary Hx Dermatological Disorder: No - Musculoskeletal/Rheumatological Hx Falls: Yes - Gastrointestinal Hx Clostridium Difficile: No - Psychiatric Hx Psychophysiologic Disorder: No Hx Anxiety: No Hx Bipolar Disorder: No Hx Depression: No Hx Emotional Abuse: No Hx Hallucinations: No Hx Panic Disorder: No Hx Post Traumatic Stress Disorder: No Hx Psychosis: No Hx Physical Abuse: No Hx Schizophrenia: No Hx Sexual Abuse: No Hx Substance Use: No - Surgical History Hx Coronary Stent: Yes - Anesthesia Hx Anesthesia: Yes Hx Anesthesia Reactions: Yes (agitation) Hx Malignant Hyperthermia: No - Suicidal Assessment Feels Threatened In Home Enviroment: No Family/Social History - Physician Review Nursing Documentation Reviewed: Yes Family/Social History: No Known Family HX Smoking Status: Never Smoked Hx Alcohol Use: No Hx Substance Use: No Allergies/Home Meds Allergies/Adverse Reactions: Allergies No Known Allergies Allergy (Verified 10/26/17 23:39) Home Medications: Home Meds Medication Instructions Recorded Confirmed Aspirin [Aspir 81] 81 mg PO DAILY 11/02/12 10/26/17 Metoprolol Succinate 25 mg PO BID 11/02/12 10/26/17 Omeprazole 20 mg PO DAILY 08/23/15 10/26/17 Alprazolam [Xanax] 0.25 mg PO HS 04/02/16 10/26/17 Naproxen [Naprosyn] 500 mg PO DAILY 04/02/16 10/26/17 Simvastatin 40 mg PO DAILY 04/02/16 10/26/17 Ciprofloxacin HCl [Cipro] 500 mg PO BID 10/26/17 10/26/17 Review of Systems - Physician Review All systems were reviewed & negative as marked: Yes - Review of Systems Constitutional: absent: Fevers Gastrointestinal: Nausea Neurological: absent: Headache, Dizziness Physical Exam Vital Signs Reviewed: Yes Vital Signs Temp Pulse Resp Pulse Ox 10/27/17 04:11 65 18 10/26/17 23:56 97 10/26/17 23:38 65 100 10/26/17 23:33 97.5 F L 65 97 Temperature: Afebrile Pulse: Regular Appearance: Positive for: Well-Appearing, Non-Toxic, Comfortable Pain Distress: None Mental Status: Positive for: Alert and Oriented X 3 - Systems Exam Head: Present: Atraumatic, Normocephalic Pupils: Present: PERRL Extroacular Muscles: Present: EOMI Conjunctiva: Present: Normal Mouth: Present: Moist Mucous Membranes Neck: Present: Normal Range of Motion Respiratory/Chest: Present: Clear to Auscultation, Good Air Exchange. No: Respiratory Distress, Accessory Muscle Use Cardiovascular: Present: Regular Rate and Rhythm, Normal S1, S2. No: Murmurs Abdomen: Present: Normal Bowel Sounds. No: Tenderness, Distention, Peritoneal Signs Back: Present: Normal Inspection Upper Extremity: Present: Normal Inspection. No: Cyanosis, Edema Lower Extremity: Present: Normal Inspection. No: Edema Neurological: Present: GCS=15, CN II-XII Intact, Speech Normal Skin: Present: Warm, Dry, Normal Color. No: Rashes Psychiatric: Present: Alert, Oriented x 3, Normal Insight, Normal Concentration Medical Decision Making ED Course and Treatment: 10/26/17 23:46 Impression: A 77 year old female with nausea. Plan: -- EKG -- labs -- Protonix, Zofran, IV fluids -- Reassess and disposition Prior Visits: Notes and results from previous visits were reviewed. Patient was last seen in the emergency department on 10/25/17 for evaluation of left lower quadrant and suprapubic abdominal pain and vomiting. Patient was admitted for diverticulitis. Patient was discharged from hospital today. Progress Notes: 10/27/17 00:15 EKG: Ordered, reviewed, and independently interpreted the EKG. Rate : 60 BPM Rhythm : NSR Interpretation : incomplete right bundle branch block, no change from previous EKG Case discussed with Dr. Ramirez Vasquez, who agrees to admit patient. pt unable to tolerate po meds will obs for iv antibiotics 10/27/17 06:14 - Lab Interpretations Lab Results: 10/26/17 23:56 10/26/17 23:56 Lab Results 10/26/17 23:56: Sodium 136, Potassium 4.1, Chloride 104, Carbon Dioxide 22, Anion Gap 13, BUN 19, Creatinine 1.3 H, Est GFR ( Amer) 48, Est GFR (Non- Af Amer) 40, Random Glucose 114 H, Calcium 9.5, Total Bilirubin 0.7, AST 26, ALT 28, Alkaline Phosphatase 116, Total Protein 6.8, Albumin 3.8, Globulin 3.0, Albumin/Globulin Ratio 1.3, Lipase 74 10/26/17 23:56: WBC 4.9, RBC 3.35 L, Hgb 10.5 L, Hct 30.8 L, MCV 91.9, MCH 31.3 , MCHC 34.1, RDW 12.6, Plt Count 241, MPV 9.1, Gran % 55.9, Lymph % (Auto) 26.7 , [place] % (Auto) 11.7 H, Eos % (Auto) 5.1 H, Baso % (Auto) 0.6, Gran # 2.72, Lymph # 1.3, [place] # 0.6, Eos # 0.3, Baso # 0.03 I have reviewed the lab results: Yes - EKG Interpretation Interpreted by ED Physician: Yes Type: 12 lead EKG - Medication Orders Current Medication Orders: Sodium Chloride (Sodium Chloride 0.9%) 1,000 mls @ 80 mls/hr IV .[id number] KRISTEN Last Admin: 10/26/17 23:59 Dose: 80 mls/hr eMAR Start Stop Document 10/26/17 23:59 AD (Rec: 10/26/17 23:59 AD [facility] [id number]) Intravenous Solution Start Date 10/26/17 Start Time 23:59 Discontinued Medications Metronidazole (Flagyl) 500 mg in 100 mls @ 100 mls/hr IVPB STAT STA PRN Reason: Protocol Stop: 10/27/17 04:01 Last Admin: 10/27/17 03:23 Dose: 100 mls/hr eMAR Start Stop Document 10/27/17 03:23 AD (Rec: 10/27/17 03:23 AD [facility] [id number]) Intravenous Solution Start Date 10/27/17 Start Time 03:23 Ondansetron HCl (Zofran Inj) 4 mg IVP STAT STA Stop: 10/26/17 23:44 Last Admin: 10/26/17 23:50 Dose: 4 mg IVP Administration Document 10/26/17 23:50 AD (Rec: 10/27/17 00:18 AD [facility] [id number]) Charges for Administration # of IVP Administrations 1 Pantoprazole Sodium (Protonix Inj) 40 mg IVP ONCE STA Stop: 10/26/17 23:44 Last Admin: 10/26/17 23:50 Dose: 40 mg IVP Administration Document 10/26/17 23:50 AD (Rec: 10/27/17 00:18 AD [facility] [id number]) Charges for Administration # of IVP Administrations 1 - Scribe Statement The provider has reviewed the documentation as recorded by the Bessie Rawls Provider Scribe Attestation: All medical record entries made by the Scribhitesh were at my direction and personally dictated by me. I have reviewed the chart and agree that the record accurately reflects my personal performance of the history, physical exam, medical decision making, and the department course for this patient. I have also personally directed, reviewed, and agree with the discharge instructions and disposition. Disposition/Present on Arrival - Present on Arrival Any Indicators Present on Arrival: No History of DVT/PE: No History of Uncontrolled Diabetes: No Urinary Catheter: No History of Decub. Ulcer: No History Surgical Site Infection Following: Abdominal Surgery, Orthopedic Procedures - Disposition Have Diagnosis and Disposition been Completed?: Yes Diagnosis: Diverticulitis Disposition: HOSPITALIZED Disposition Time: 02:00 Condition: FAIR
[2017-10-26] MEDS: Sodium Chloride 0.9% 1,000 ML IV SCH (23:59)
[2017-10-27 00:10] LABS: BASO # 0.03 K/mm3 (0.0-2.0); BASO % 0.6 % (0.0-3.0); EOS # 0.3 (0.0-0.7); EOS % 5.1 % (1.5-5.0); GRAN # 2.72 (1.4-6.5); GRAN % 55.9 % (50.0-68.0); HEMATOCRIT 30.8 % (36.0-48.0); LYMPH # 1.3 (1.2-3.4); LYMPH % 26.7 % (22.0-35.0); MEAN CELL VOLUME 91.9 fl (80.0-105.0); MEAN CORPUSCULAR HEMOGLOBIN 31.3 pg (25.0-35.0); MEAN CORPUSCULAR HGB CONC 34.1 g/dl (31.0-37.0); MEAN PLATELET VOLUME 9.1 fl (7.0-11.0); MONO # 0.6 (0.1-0.6); MONO % 11.7 % (1.0-6.0); RED CELL DISTRIBUTION WIDTH 12.6 % (11.5-14.5); WHITE BLOOD COUNT 4.9 10^3/ul (4.5-11.0)
[2017-10-27 00:18] LABS: ALB/GLOB RATIO 1.3 (1.1-1.8); BILIRUBIN,TOTAL 0.7 mg/dL (0.2-1.3); CALCIUM 9.5 mg/dL (8.4-10.5); POTASSIUM 4.1 mmol/L (3.6-5.0); TOTAL PROTEIN 6.8 g/dL (5.8-8.3)
[2017-10-27] MEDS ORDERED: metroNIDAZOLE IV 500 mg/100 ml 500 MG/100 ML BAG IVPB STA (03:02)
[2017-10-27 07:54] VITALS: RESP 20
--- NOTE | 2017-10-27 09:52 | CARD ---
APPROVED REPORT EKG Measurement Heart [id number] <Conclusion> Normal sinus rhythm with sinus arrhythmia Right bundle branch block Possible Inferior infarct, age undetermined Anterior infarct, age undetermined Abnormal ECG
[2017-10-27] MEDS ORDERED: Ciprofloxacin 400mg/200ml D5W 400 MG/200 ML BAG IVPB SCH (10:15)
[2017-10-27] MEDS: Metoprolol Succinate 25 mg XL Tab PO SCH (12:01)
[2017-10-27] MEDS: metroNIDAZOLE IV 500 mg/100 ml 500 MG/100 ML BAG IVPB SCH ×2 (15:39→21:26)
[2017-10-27] MEDS: Ciprofloxacin 400mg/200ml D5W 400 MG/200 ML BAG IVPB SCH (21:26)
[2017-10-28] MEDS: Sodium Chloride 0.9% 1,000 ML IV SCH (00:02)
[2017-10-28] MEDS: metroNIDAZOLE IV 500 mg/100 ml 500 MG/100 ML BAG IVPB SCH (05:35)
[2017-10-28] MEDS: Metoprolol Succinate 25 mg XL Tab PO SCH ×2 (06:33→09:52)
[2017-10-28 06:35] VITALS: BP 170/69
--- NOTE | 2017-10-28 08:06 | PN ---
DATE: SUBJECTIVE: The patient was initially seen in the emergency room yesterday by Dr. Ramirez Vasquez and Dr. Raghav Cage. It was determined at that time that the patient had diverticulitis and she was discharged on ciprofloxacin and metronidazole p.o. She returned later on yesterday and was admitted through the night for acute diverticulitis because of the nausea from most likely the ciprofloxacin and the metronidazole. PHYSICAL EXAMINATION: VITAL SIGNS: Currently are a temperature of 97.9, pulse rate of 82, blood pressure 150/80, respiratory rate of 20, with an O2 saturation of 98% on room air. HEENT: PERRLA. EOMI. No icterus is present. NECK: Supple with a full range of motion. No adenopathy or bruits. LUNGS: Clear to auscultation and percussion bilaterally. HEART: With a regular rate and rhythm. No murmurs, rubs, or gallops. ABDOMEN: Soft. There is some mild diffuse lower abdominal tenderness to deep palpation. There is no rebound and the bowel sounds are normoactive. EXTREMITIES: Show no deformities and no edema, with a full range of motion. NEUROLOGIC: There are no focal motor deficits. LABORATORY DATA: Lab values at this time are RBC of 3.35, hemoglobin and hematocrit of 10.5, and 30.8. Chemistry: Normal with the exception of a creatinine of 1.3 and a random nonfasting glucose of 114. The patient was placed on intravenous antibiotics, will be evaluated in the morning for possible discharge. DISCHARGE DIAGNOSES: 1. Diverticulitis. 2. Hyperlipidemia. 3. Anxiety. Seymour Vasquez MD
[2017-10-28 08:51] VITALS: PULSE 62; TEMP 97.8; O2SAT 98
--- NOTE | 2017-10-28 09:19 | CON ---
DATE: 10/27/2017 PAST MEDICAL HISTORY: Notable for diverticulitis, coronary artery disease with placement of 6 coronary artery stents, hypertension, lower GI bleeding, hyperlipidemia. PAST SURGICAL HISTORY: Notable for cholecystectomy, hysterectomy, appendectomy. FAMILY HISTORY: Noncontributory. SOCIAL HISTORY: The patient denies cigarette smoking or alcohol use. REVIEW OF SYSTEMS: A 14-point review of systems is notable for nausea, vomiting, left lower quadrant abdominal pain and hallucinations. PHYSICAL EXAMINATION: GENERAL: A well-developed female, lying in bed, in no acute distress. VITAL SIGNS: Reveal temperature of 97.9, blood pressure 150/80, heart rate of 82. BMI is 25. HEENT: Reveals sclerae to be white. Conjunctivae pink. NECK: Supple. CHEST: Reveal lungs to be clear. HEART: Reveals regular rate and rhythm. ABDOMEN: Soft. Mild left lower quadrant tenderness. No rebound. No guarding. EXTREMITIES: Show no edema. LABORATORY DATA: Reveal white blood cell count 4.9, hemoglobin 10.5. Chemistries reveal BUN 19, creatinine 1.3. IMPRESSION: 1. A 77-year-old female, just discharged from the hospital after being hospitalized for sigmoid diverticulitis with apparent adverse reaction to p.o. Flagyl associated with nausea, vomiting, hallucinations. 2. Sigmoid diverticulitis, improving. 3. Coronary artery disease. 4. Anemia, most likely anemia of chronic disease. RECOMMENDATIONS: 1. Observe the patient on clear liquid diet. If tolerated, it can be advanced to a low-residue diet. 2. We will start the patient on Cipro 500 mg IV q. 12. 3. Continue IV Flagyl 500 mg intravenous piggyback t.i.d. 4. When the patient gets discharged, we will withhold p.o. Flagyl, but continue with p.o. Cipro 500 mg b.i.d. Raghav Cage MD
[2017-10-28] MEDS: Ciprofloxacin 400mg/200ml D5W 400 MG/200 ML BAG IVPB SCH (09:55)
--- NOTE | 2017-10-28 14:05 | HP ---
HISTORY OF PRESENT ILLNESS: The patient is a 77 year old woman with a past medical history of diverticulosis who was recently admitted for management of acute sigmoid diverticulitis and several hours after being discharged to home developed severe nausea and hallucinations after taking her prescribed Metronidazole. Given her severe nausea, vomiting and hallucinations she returned to the ED for evaluation. Upon arrival to the ED she was noted to be afebrile and hemodynamically stable. Initial lab studies were largely unremarkable but given the ongoing nausea she was admitted for symptom control. 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 PAST SURGICAL HISTORY: Intramedullary nailing of the left hip. ALLERGIES: NO KNOWN DRUG ALLERGIES. MEDICATIONS: Aspirin 81 mg p.o. daily, Simvastatin 40 mg p.o. daily, Toprol-XL 25 mg p.o. daily, Omeprazole 20 mg p.o. daily, Xanax 0.25 mg p.o. at bedtime and Naprosyn 500 mg p.o. b.i.d. p.r.n. pain. FAMILY HISTORY: Noncontributory. SOCIAL HISTORY: The patient denies any toxic habits. REVIEW OF SYSTEMS: A 14-point review of systems is negative except as per HPI. PHYSICAL EXAMINATION: VITAL SIGNS: Temperature 97.4, pulse 64, blood pressure 140/76, respiratory rate 20, and oxygen saturation 99% on room air. GENERAL: No apparent distress. HEENT: PERRL, EOMI. No scleral icterus. No conjunctival pallor. NECK: No JVD. No bruits. LUNGS: Clear to auscultation. CARDIOVASCULAR: Regular rate and rhythm. Normal S1 and S2. ABDOMEN: Normoactive bowel sounds, soft, nontender, and nondistended. EXTREMITIES: No edema. NEUROLOGIC: Awake, alert, and oriented x3. No focal motor deficits. LABORATORY DATA: CBC reviewed and unremarkable. CMP reviewed and unremarkable. ASSESSMENT: The patient is a 77 year old woman with diverticulosis with history of diverticular bleed, CAD s/p PCI with stent placement, hypertension, hyperlipidemia and anxiety disorder who was recently discharged after admission for management of acute sigmoid colon iverticulitis who returned to [facility] ED with nausea and vomiting after taking her prescribed Metronidazole. PLAN: 1. Diverticulitis of the sigmoid colon, resolving. The patient is tolerating p.o. intake and reports resolution of nausea and vomiting. She furthermore denies any abdominal discomfort. The patient was advised to eat prior to taking her antibiotics to minimize GI side effects. 2. CAD s/p PCI with stent placement. Continue aspirin 81 mg p.o. daily, Toprol -XL 25 mg p.o. daily, and Lipitor 40 mg p.o. daily (simvastatin is not on formulary). 3. Hyperlipidemia. Continue Lipitor 40 mg p.o. daily. 4. Hypertension. Continue Toprol-XL 25 mg p.o. daily. 5. GERD. Continue Protonix 40 mg p.o. daily. 6. Anxiety. Continue Xanax 0.25 mg p.o. at bedtime. 7. Prophylaxis. Continue Protonix 40 mg p.o. daily for GI prophylaxis. DVT prophylaxis is not indicated as the patient is ambulatory. 8. Disposition. The patient will be discharged to home today. CODE STATUS: Full code. Ramirez Vasquez MD MTDD
--- NOTE | 2017-10-28 15:26 | PN ---
DATE: 10/28/2017 SUBJECTIVE: The patient is lying in bed. She denies any further nausea or vomiting. Her left lower quadrant abdominal pain has been improving. It is minimal at this point. She is tolerating solid foods. PHYSICAL EXAMINATION: VITAL SIGNS: Reveal a temperature of 97.8, blood pressure 170/69, heart rate 62. HEENT: Reveals sclerae to be white. Conjunctivae pink. NECK: Supple. CHEST: Lungs are clear. HEART: Reveals a regular rate and rhythm. ABDOMEN: Soft with mild left lower quadrant tenderness. No rebound or guarding. EXTREMITIES: Show no edema. LABORATORY DATA: No new laboratory data available. IMPRESSION: 1. Nausea and vomiting secondary to adverse reaction to METRONIDAZOLE. 2. Sigmoid diverticulitis. RECOMMENDATIONS: The patient is to be discharged home on Cipro 500 mg twice a day for 14 days and a low residue diet. I will follow the patient up in the office. Raghav Cage MD
--- NOTE | 2017-10-31 02:39 | DS ---
ADMITTING DIAGNOSIS: Diverticulitis of the sigmoid colon. DISCHARGE DIAGNOSIS: Diverticulitis of the sigmoid colon. 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 CONSULTATIONS: Dr. Cage (Gastroenterology). IMAGING STUDIES: None. PROCEDURES: None. HISTORY OF PRESENT ILLNESS: The patient is a 77 year old woman with a past medical history of diverticulosis who was recently admitted for management of acute sigmoid diverticulitis and several hours after being discharged to home she developed severe nausea, vomiting and hallucinations after taking her prescribed dose of Metronidazole. Given her nausea and vomiting, as well as the rather disturbing hallucinations, she opted for ED evaluation. Upon arrival to the ED she was noted to be afebrile and hemodynamically stable and workup in the ED was largely unremarkable. Due to the ongoing nausea she was admitted for symptom control. HOSPITAL COURSE: Upon admission to the general medical pinon she was started on Zofran and IV fluids. Her Ciprofloxacin and Metronidazole IV were restarted. The patient had prompt resolution of her presenting symptoms and the following day she reported being back at her baseline mental status. She was tolerating her p.o. intake and reported complete resolution of her GI symptoms and requested to be discharged to home. CONDITION: Good, improved. DISPOSITION: Home. DISCHARGE MEDICATIONS: Aspirin 81 mg p.o. daily, Simvastatin 40 mg p.o. daily, Toprol-XL 25 mg p.o. daily, Omeprazole 20 mg p.o. daily, Xanax 0.25 mg p.o. at bedtime, Naprosyn 550 mg p.o. b.i.d. p.r.n. pain, and Ciprofloxacin 500 mg p.o. b.i.d. (to complete 10 -day course). DISCHARGE INSTRUCTIONS: The patient was advised to adhere to a diet as advised by her PMD and Dr. Cage of Gastroenterology. She was also advised if she has any recurrence of her symptoms to present to her PMD or to the nearest ED immediately. FOLLOWUP: The patient to follow up with her PMD within one week of discharge. The patient to follow up with Dr. Cage of Gastroenterology as scheduled. Ramirez Vasquez MD MTDJessica
== END 2017-10-28 11:00 | disposition home or self-care (01) ==
LOC: ED 23:26 → ERH 10-27 03:03 → 3RNO 10-27 07:01
PROVIDERS: ADMIT Student in an Organized Health Care Education/Training Program; ATTEND Student in an Organized Health Care Education/Training Program
DX: K57.32 Diverticulitis of large intestine without perforation or abscess without bleeding (principal); I25.10 Atherosclerotic heart disease of native coronary artery without angina pectoris; I10 Essential (primary) hypertension; E78.5 Hyperlipidemia, unspecified; K21.9 Gastro-esophageal reflux disease without esophagitis; F41.9 Anxiety disorder, unspecified; M48.00 Spinal stenosis, site unspecified; M54.5 Low back pain; D64.9 Anemia, unspecified; Z95.5 Presence of coronary angioplasty implant and graft; Z79.82 Long term (current) use of aspirin; Z79.899 Other long term (current) drug therapy
CPT/HCPCS: 80053; 83690; 85025; 93005; 96365; 96366; 96367; 96375; 99285; C9113; G0378; J0744; J2405; J7040

== ENCOUNTER 2018-03-17 18:53 | Inpatient (IN) | payer MEDICARE ==
--- NOTE | 2018-03-17 18:55 | EDPD ---
HPI Stroke - General Time Seen by Provider: 03/17/18 18:54 Historian: Patient - History of Present Illness Narrative History of Present Illness (Free Text): 03/17/18 18:51 77 year old female, with past medical history of hypertension, CAD with 6 stents , diverticulitis and hyperlipidemia, presents to the emergency department complaining of difficulty speaking since 6:15pm this evening. Patient was on her way to a [employer] festival with her family when she suddenly felt unwell, difficulty expressing words and a mild headache. Patient currently expresses non -localized weakness. pt states no arm/leg weakness, no gait changes; Patient denies any fever, chills, nausea, vomiting, diarrhea, abdominal pain, incontinence, chest pain, shortness of breath, visual changes, neck pain, or any other complaints. Patient informs taking her aspirin and Plavix this morning. pt is here for further eval Right hand dominant PMD: Dr. Vasquez Date:: 03/17/18 Time: 18:15 Onset:: Just prior to presenting Timing: Currently Symptomatic Context: Other (On way to a [employer] festival) Associated Symptoms: other (speech changes) Exacerbated by: Nothing Relieved by: Nothing - Location Location: Speech - Pain Assessment/Levels Maximum Severity: None Severity Current: None rTPA Inclusion/Exclusion - Refusal of Treatment Patient Refused Treatment: No - Inclusion Criteria for Altepase Patient is 18 years or Older: Yes The Clinical Diagnosis of Ischemic Stroke That is Causing a Potentially Disabling Neurological Deficit: Yes Time of Onset is Well Established to be Less Than 270 Minute Before Treatment Would Begin: Yes Risk/Benefit Discussed With Patient/Family Member Present: Yes - Exclusion Criteria for Altepase Uncontrolled Hypertension at Time of Treatment (Systolic BP above 185 or Diastolic BP above 110 mmHg): No Active Internal Bleeding: No Known Bleeding Diathesis Including but Not Limited to: Platelets Below 100,000/ mm,PTT Above 40 sec After Heparin Use, Current Use of Oral Anitcoagulant With INR Greater Than 1.7 or PT Greater Than 15 secs: No Evidence of an Intracranial Hemorrhage: No Evidence of Major Acute Infarct With Signs Greater Than 1/3 MCA Territory: No Suspicion of Subarachnoid Hemorrhage on Pretreatment Evaluation Even if CT Head Negative For Hemorrhage: No - Warning to TPA With Conditions Following Conditions Weighed Against Anticipated Benefit: Yes Condition: Stroke Serevity Too Mild Past Medical History - Provider Review Nursing Documentation Reviewed: Yes - Travel History Have you recently traveled outside [place] w/in the past 3 mons?: No - Past History Past History: No Previous - Infectious Disease Hx of Infectious Diseases: None - Tetanus Immunization Tetanus Immunization: Unknown - Reproductive Menopause: Yes Currently : No - Cardiac Hx Cardiac Disorders: Yes Hx Hypertension: Yes Other/Comment: 6 stents - Pulmonary Hx Respiratory Disorders: No - Neurological Hx Neurological Disorder: No - HEENT Hx HEENT Disorder: No - Renal Hx Renal Disorder: No - Endocrine/Metabolic Hx Endocrine Disorders: No - Hematological/Oncological Hx Blood Disorders: Yes Hx Blood Transfusions: Yes Hx Blood Transfusion Reaction: No Other/Comment: hx of vaginal hemm. - Integumentary Hx Dermatological Disorder: No - Musculoskeletal/Rheumatological Hx Falls: Yes - Gastrointestinal Hx Clostridium Difficile: No - Psychiatric Hx Psychophysiologic Disorder: No Hx Anxiety: No Hx Bipolar Disorder: No Hx Depression: No Hx Emotional Abuse: No Hx Hallucinations: No Hx Panic Disorder: No Hx Post Traumatic Stress Disorder: No Hx Psychosis: No Hx Physical Abuse: No Hx Schizophrenia: No Hx Sexual Abuse: No Hx Substance Use: No - Surgical History Hx Coronary Stent: Yes - Anesthesia Hx Anesthesia Reactions: Yes (agitation) - Suicidal Assessment Feels Threatened In Home Enviroment: No Family/Social History - Family/Social History Family History: Non-Contributory Alcohol: None Allergies/Home Meds Allergies/Adverse Reactions: Allergies No Known Allergies Allergy (Verified 03/17/18 19:21) Home Medications: Home Meds Medication Instructions Recorded Confirmed Omeprazole 40 mg PO DAILY 08/23/15 03/17/18 Alprazolam [Xanax] 0.25 mg PO BID PRN 04/02/16 03/17/18 Simvastatin 40 mg PO DAILY 04/02/16 03/17/18 Metoprolol Succinate [Toprol XL] 25 mg PO DAILY 03/17/18 03/17/18 Review of Systems - Physician Review All systems were reviewed & negative as marked: Yes - Review of Systems Constitutional: Normal. absent: Fevers Eyes: Normal. absent: Vision Changes ENT: Normal Respiratory: Normal. absent: SOB Cardiovascular: Normal. absent: Chest Pain Gastrointestinal: Normal. absent: Abdominal Pain, Diarrhea, Nausea, Vomiting Genitourinary Female: Normal Musculoskeletal: Normal Skin: Normal Neurological: Headache, Speech Changes Endocrine: Normal Hemo/Lymphatic: Normal Psychiatric: Normal ED Stroke Physical Exam Vital Signs Reviewed: Yes Temperature: Afebrile Blood Pressure: Hypertensive Pulse: Regular Respiratory Rate: Tachypneic Appearance: Positive for: Well-Appearing, Non-Toxic, Uncomfortable, Other (alert /awake, GCS = 15, oriented x 3, cooperative, uncomfortable, NAD, resting in bed) Pain Distress: None Mental Status: Positive for: Alert and Oriented X 3 - Systems Exam Head: Present: Atraumatic, Normocephalic Pupils: Present: PERRL, Other (no nystagmus, no photophobia, sclera anicteric, wearing eyeglasses) Extroacular Muscles: Present: EOMI Conjunctiva: Present: Normal Ears: Present: Normal Mouth: Present: Moist Mucous Membranes, Normal Teeth, Other (uvula/tongue are midline, no exudate/lesions, no drooling/stridor, no dysphonia) Pharnyx: Present: Normal Nose (External): Present: Atraumatic Nose (Internal): Present: Normal Inspection Neck: Present: Normal Range of Motion, Trachea Midline, Other (no nuchal rigidity, intact ROM). No: Meningeal Signs, MIDLINE TENDERNESS, Paraspinal Tenderness Respiratory/Chest: Present: Clear to Auscultation, Good Air Exchange. No: Respiratory Distress, Accessory Muscle Use Cardiovascular: Present: Regular Rate and Rhythm, Normal S1, S2. No: Murmurs Abdomen: Present: Normal Bowel Sounds, Other (well nourished female, no focal tenderness, no masses/rebound/guarding/rigidity, no dunlap's sign, no mcburney' s point tenderness) Back: Present: Normal Inspection, Other (no midline tenderness, no step off). No: CVA Tenderness, Midline Tenderness Upper Extremity: Present: Normal Inspection, Normal ROM, NORMAL PULSES, Neurovascularly Intact, Capillary Refill < 2s. No: Edema, Deformity Lower Extremity: Present: Normal Inspection, NORMAL PULSES, Normal ROM, Neurovascularly Intact, Capillary Refill < 2 s, Other (moving all limbs with ease, neurovasc intact b/l, strength 5/5 grossly intact b/l, + ambulatory) Neurologic: Present: GCS=15, CN II-XII Intact, Other (NO slurr speech, + expressive speech issue; no facial asymmetries, NIH stroke scale ~ 1) Skin: Present: Warm, Normal Color, Other (cap refill < 1sec, no ulcerations, no petechiae) Psychiatric: Present: Alert, Oriented x 3 Medical Decision Making ED Course and Treatment: 03/17/18 18:54 Impression: 77 year old female presents to the emergency department for difficulty speaking. R/O CVA vs TIA; vs atypical neurologic symptoms Plan: -- Blood type/screen -- VBG -- CT of head -- CXR -- IV Fluids -- EKG -- Labs -- Reassess and disposition Progress Notes: 03/17/18 18:51 Code stroke activated. 03/17/18 18:[address] Pereira, neurologists nutritional yeast supervisor, Will evaluate patient via videocalling/teleconferencing. 03/17/18 19:32 Dr. Pereira evaluated patient by bedside via video calling and obtained an NIH stroke scale of 0 and states that patient is NOT A CANDIDATE for tPA as a result. Requests to treat patient for blood pressure if it reaches over 220/110 and to start normal saline at 100cc/hr, 300mg of plavix and 81mg of aspirin. As per Dr. Pereira's request, patient will be admitted to telemetry with Q1 neurochecks and follow-up MRI/MRA and re-evaluation tomorrow morning. As per his request, patient's bed will be elevated approximately 30 degrees at the head end of the bed. 03/17/18 19:[address] Vasquez, who is aware and agrees with plan; would like to consult ICU for possible ICU placement 03/17/18 20:[address] Hwang, intensivists nutritional yeast supervisor/representive, who is aware will evaluate patient. 03/17/18 21:[address] Hwang, states pt can be downgraded to TELE for admission 03/17/18 21:55 pt is currently comfortable pt is awaiting bed placement family/patient are made aware of pt's medical results agrees with admission Re-evaluation Time: 20:00 Reassessment Condition: Improved - Critical Care Critical Care Minutes: 60 minutes Critical Care Time: Excluding Proc Time Narrative Critical Care (Text): 03/17/18 21:59 critical care time: 60min, excluding procedure time, excluding time teaching residents/students/mid-level providers; including initial eval/diagnosis, diagnostic interpretation, re-eval, consultations, final disposition - Lab Interpretations I have reviewed the lab results: Yes Interpretation: Abnormal lab values (elevated Triglycerides) - RAD Interpretation Narrative RAD Interpretations (Text): 03/17/18 19:28 CT of head reviewed by radiologist, shows: FINDINGS: Brain: There are areas of diminished density in the periventricular white matter bilaterally consistent with chronic small vessel ischemic changes. Old lacunar infarcts in left basal ganglia. No hemorrhage. Ventricles: Unremarkable. No ventriculomegaly. Bones/joints: Unremarkable. No acute fracture. Soft tissues: Unremarkable. Sinuses: Unremarkable as visualized. No acute sinusitis. Mastoid air cells: Unremarkable as visualized. No mastoid effusion. IMPRESSION: Chronic small vessel ischemic changes. Old lacunar infarcts in left basal ganglia. 03/17/18 20:01 CTA of head reviewed by radiologist, shows: Right internal carotid artery: No evidence of acute pathology. Intracranial segment is patent with no significant stenosis. No aneurysm. Right anterior cerebral artery: Unremarkable. No occlusion or significant stenosis. No aneurysm. Right middle cerebral artery: Unremarkable. No occlusion or significant stenosis. No aneurysm. Right posterior cerebral artery: Unremarkable. No occlusion or significant stenosis. No aneurysm. Right vertebral artery: Mild stenosis in left intracranial vertebral artery. No significant stenosis or evidence of occlusion. 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 No evidence of occlusion. Left internal carotid artery: No evidence of acute pathology. Intracranial segment is patent with no significant stenosis. No aneurysm. Left anterior cerebral artery: Unremarkable. No occlusion or significant stenosis. No aneurysm. Left middle cerebral artery: Unremarkable. No occlusion or significant stenosis. No aneurysm. Left posterior cerebral artery: Unremarkable. No occlusion or significant stenosis. No aneurysm. Left vertebral artery: Unremarkable as visualized. Basilar artery: Unremarkable. No occlusion or significant stenosis. No aneurysm. IMPRESSION: No evidence of vascular pathology. 03/17/18 22:00 CXR - NAD Burr Bench Hand: ED Physician, Radiologist - EKG Interpretation EKG Interpretation (Text): 03/17/18 22:01 NSR at 70 bpm, RAD, qs in leads II/III/F, RBBB, inverted T in leads V1-4, no st changes, ABNL EKG; no gross changes compare with old ekg 10/2017 Interpreted by ED Physician: Yes Type: 12 lead EKG Comparison: Similar to previous EKG - Scribe Statement The provider has reviewed the documentation as recorded by the Chachaibe Candie Walls. All medical record entries made by the Chachaibhitesh were at my direction and personally dictated by me. I have reviewed the chart and agree that the record accurately reflects my personal performance of the history, physical exam, medical decision making, and the department course for this patient. I have also personally directed, reviewed, and agree with the discharge instructions and disposition. NIHSS Scale ([place]) Time Performed: 18:50 - How Severe is the Stoke 24 hours post onset S/S Level of Consciousness: 0=Alert LOC to Questions: 0=Both comments correct LOC to commands: 0=Obeys both correctly Best Gaze: 0=Normal Visual: 0=No visual loss Facial: 0=Normal Motor Arm - Left: 0=No drift Motor Arm - Right: 0=No drift Motor Leg - Left: 0=No drift Motor Leg - Right: 0=No drift Limb Ataxia: 0=Absent Sensory: 0=Normal Best Language: 1=Mild to moderate aphasia Dysarthia: 0=Normal articulation Extinction & Inattention (Neglect): 0=Normal, no object Score: 1 Risk Level: Minor Stroke Risk Disposition/Present on Arrival - Present on Arrival Any Indicators Present on Arrival: No History of DVT/PE: No History of Uncontrolled Diabetes: No Urinary Catheter: No History of Decub. Ulcer: No History Surgical Site Infection Followin, Orthopedic Procedures - Disposition Have Diagnosis and Disposition been Completed?: Yes Diagnosis: TIA (transient ischemic attack), Elevated blood pressure reading, Headache Disposition: HOSPITALIZED Disposition Time: 20:30 Patient Plan: Admission, ICU Patient Problems: Current Active Problems Problem Status Onset Elevated blood pressure reading Acute Headache Acute Transient ischemic attack (TIA) Acute Condition: FAIR Discharge Instructions (ExitCare): Hypertension (ED) Print Language: INDONESIAN
[2018-03-17] MEDS ORDERED: Iohexol 350 MG/100 ML VIAL ONE (19:01)
[2018-03-17 19:14] LABS: BASO # 0.04 K/mm3 (0.0-2.0); BASO % 0.7 % (0.0-3.0); EOS # 0.3 (0.0-0.7); EOS % 4.4 % (1.5-5.0); GRAN # 3.18 (1.4-6.5); HEMOGLOBIN 12.2 g/dL (12.0-16.0); LYMPH # 1.5 (1.2-3.4); LYMPH % 27.1 % (22.0-35.0); MEAN CELL VOLUME 90.5 fl (80.0-105.0); MEAN CORPUSCULAR HEMOGLOBIN 31.2 pg (25.0-35.0); MEAN CORPUSCULAR HGB CONC 34.5 g/dl (31.0-37.0); MEAN PLATELET VOLUME 8.8 fl (7.0-11.0); MONO # 0.7 (0.1-0.6); MONO % 11.8 % (1.0-6.0); RBC 3.91 10^6/uL (3.5-6.1); RED CELL DISTRIBUTION WIDTH 13.3 % (11.5-14.5); WHITE BLOOD COUNT 5.7 10^3/ul (4.5-11.0)
[2018-03-17 19:19] LABS: INR 0.95 (0.93-1.08); PARTIAL THROMBOPLASTIN TIME 29.7 Seconds (25.1-36.5); PROTHROMBIN TIME 10.8 SECONDS (9.4-12.5)
[2018-03-17 19:21] LABS: ALB/GLOB RATIO 1.4 (1.1-1.8); ALBUMIN 4.1 g/dL (3.0-4.8); ALT/SGPT 27 U/L (7-56); AST/SGOT 25 U/L (14-36); BLOOD UREA NITROGEN 20 mg/dL (7-21); CALCIUM 9.2 mg/dL (8.4-10.5); GFR AFRICAN-AMERICAN 53; GFR NON-AFRICAN AMERICAN 44; HDL CHOLESTEROL 54 mg/dL (29-60)
[2018-03-17] MEDS: Sodium Chloride 0.9% 1,000 ML IV SCH (19:28)
[2018-03-17 19:32] LABS: LDL CHOLESTEROL 53 mg/dL (0-129)
[2018-03-17 19:35] LABS: TROPONIN I < 0.01 ng/mL
--- NOTE | 2018-03-17 19:47 | CP.PCM.CON ---
History of Present Illness - History of Present Illness History of Present Illness: Tele-Stroke Consult Note: This is a tele-health visit being conducted with bi- directional video conferencing. Mrs. Lopez is a 77-year-old woman with a past medical history of HTN, HLD, CAD (s/p 6 stents), who was going to her grand-daughter's show and developed the sudden onset of speech difficulty. She was unable to produce words. She presented to the ED, and by 7PM, a "code stroke" was called. CT scan of the head did not show any acute findings. When I video examined the patient, she was able to speak coherently, name all objects and had no focal neurological deficits with an NIHSS of 0. She was not a tPA candidate due to resolution of symptoms. Review of Systems - Review of Systems All systems: reviewed and no additional remarkable complaints except Past Patient History - Infectious Disease Hx of Infectious Diseases: None - Past Social History Smoking Status: Never Smoked - CARDIAC Hx Cardiac Disorders: Yes Hx Hypertension: Yes Other/Comment: 6 stents - PULMONARY Hx Respiratory Disorders: No - NEUROLOGICAL Hx Neurological Disorder: No - HEENT Hx HEENT Problems: No - RENAL Hx Chronic Kidney Disease: No - ENDOCRINE/METABOLIC Hx Endocrine Disorders: No - HEMATOLOGICAL/ONCOLOGICAL Hx Blood Disorders: Yes Hx Blood Transfusions: Yes Hx Blood Transfusion Reaction: No Other/Comment: hx of vaginal hemm. - INTEGUMENTARY Hx Dermatological Problems: No - MUSCULOSKELETAL/RHEUMATOLOGICAL Hx Falls: Yes - GASTROINTESTINAL Hx Clostridium Difficile: No - PSYCHIATRIC Hx Psychophysiologic Disorder: No Hx Anxiety: No Hx Bipolar Disorder: No Hx Depression: No Hx Emotional Abuse: No Hx Hallucinations: No Hx Panic Symptoms: No Hx Post Traumatic Stress Disorder: No Hx Psychosis: No Hx Physical Abuse: No Hx Schizophrenia: No Hx Sexual Abuse: No Hx Substance Use: No - SURGICAL HISTORY Hx Coronary Stent: Yes - ANESTHESIA Hx Anesthesia Reactions: Yes (agitation) Meds Allergies/Adverse Reactions: Allergies Allergy/AdvReac Type Severity Reaction Status Date / Time No Known Allergies Allergy Verified 03/17/18 19:21 - Medications Medications: Current Medications Sodium Chloride (Sodium Chloride 0.9%) 1,000 mls @ 100 mls/hr IV .Q10H KRISTEN Last Admin: 03/17/18 19:28 Dose: 100 mls/hr Physical Exam - Neurological Exam Neurological exam: Alert, CN II-XII Intact, Oriented x3, Reflexes Normal Additional comments: Speech is fluent without aphasia or dysarthria. Comprehension, naming, and repetition were intact. Strength is full/symmetrical. Sensation is intact. NIHSS = 0 Results - Vital Signs Recent Vital Signs: Last Vital Signs Temp Pulse 82 03/17/18 19:24 Resp 25 H 03/17/18 19:24 BP 170/83 H 03/17/18 19:24 Pulse Ox 100 03/17/18 19:24 - Labs Result Diagrams: 03/17/18 19:07 03/17/18 19:07 Labs: Laboratory Results - last 24 hr 03/17/18 03/17/18 03/17/18 19:07 19:07 19:07 WBC 5.7 RBC 3.91 Hgb 12.2 Hct 35.4 L MCV 90.5 MCH 31.2 MCHC 34.5 RDW 13.3 Plt Count 286 MPV 8.8 Gran % 56.0 Lymph % (Auto) 27.1 [place] % (Auto) 11.8 H Eos % (Auto) 4.4 Baso % (Auto) 0.7 Gran # 3.18 Lymph # (Auto) 1.5 [place] # (Auto) 0.7 H Eos # (Auto) 0.3 Baso # (Auto) 0.04 PT 10.8 INR 0.95 APTT 29.7 Sodium 140 Potassium 4.5 Chloride 104 Carbon Dioxide 22 Anion Gap 18 BUN 20 Creatinine 1.2 Est GFR ( Amer) 53 Est GFR (Non-Af Amer) 44 Random Glucose 159 H Calcium 9.2 Total Bilirubin 0.5 AST 25 ALT 27 Alkaline Phosphatase 136 H Troponin I < 0.01 Total Protein 7.0 Albumin 4.1 Globulin 2.9 Albumin/Globulin Ratio 1.4 Triglycerides 175 H LDL Cholesterol Direct 53 HDL Cholesterol 54 Assessment & Plan (1) Transient ischemic attack (TIA) Assessment and Plan: 1. Admit to telemetry 2. MRI brain without contrast, MRA of the head/neck without contrast 3. Echocardiogram with bubble study 4. Plavix 300 mg PO ONCE, and Aspirin 81 mg PO daily 5. Q 2 hour neuro-checks 6. PT/OT eval and treatment 7. DVT Px 8. Case management consult 9. Check lipid panel, HbA1c, B12, folate, TSH, vitamin D level, homocysteine level 10. Fluids with NS at 100 mL/hr 11. Keep HOB at 30 degrees Thank you. Status: Acute Priority: High
--- NOTE | 2018-03-17 21:13 | CP.PCM.CON ---
<Natalie Rocha - Last Filed: 03/17/18 23:28> History of Present Illness - History of Present Illness History of Present Illness: PGY-[address] Hwang ICU consult: Code Stroke Mrs. Lopez is a 77-year-old woman with a past medical history of HTN, HLD, CAD (s/p 6 stents), who was going to her grand-daughter's show and developed the sudden onset of speech difficulty at 6:10pm. She was able to produce words but family said that pt spoke out of context. Pt noticed mind clouding but did not recall any palpitation or dizziness when that happened. She presented to the ED, and by 7PM, a "code stroke" was called. CT scan of the head did not show any acute findings. When the neurologist video examined the patient, she was able to speak coherently, name all objects and had no focal neurological deficits with an NIHSS of 0. She was not a tPA candidate due to resolution of symptoms. As I examined the patient, she was able to account the same events. ROS - (+) per family, pt still has mild slurring of speech Denies [place], vision changes, choking, drooling, cp, sob, palpitation, n/v/ d/c, dysuria (+) urinary frequency and incontence at baseline PMH: CAD s/p 6 stents, HTN/HLD, hypothyrodism, anxiety, GERD, osteoarthritis PSH: Hysterectomy due to prolapse bladder, cholecystectomy, appendectomy FH: mom-cancer, son-heart attack at 43 years old, HTN SH: Denies ever smoke. occasional beer, not recently. No drugs. Ambulate with cane Able to shop, drive, sort meds by herself Live with 2 daughter, 1 upstairs, 1 downstairs All: Some antibiotics. Daughter will provide info tomorrow Levaquine - side effect, n/v Med: See MAR PMD: Dr Vasquez Past Patient History - Infectious Disease Hx of Infectious Diseases: None - Past Social History Smoking Status: Never Smoked - CARDIAC Hx Cardiac Disorders: Yes Hx Hypertension: Yes Other/Comment: 6 stents - PULMONARY Hx Respiratory Disorders: No - NEUROLOGICAL Hx Neurological Disorder: No - HEENT Hx HEENT Problems: No - RENAL Hx Chronic Kidney Disease: No - ENDOCRINE/METABOLIC Hx Endocrine Disorders: No - HEMATOLOGICAL/ONCOLOGICAL Hx Blood Disorders: Yes Hx Blood Transfusions: Yes Hx Blood Transfusion Reaction: No Other/Comment: hx of vaginal hemm. - INTEGUMENTARY Hx Dermatological Problems: No - MUSCULOSKELETAL/RHEUMATOLOGICAL Hx Falls: Yes - GASTROINTESTINAL Hx Clostridium Difficile: No - PSYCHIATRIC Hx Psychophysiologic Disorder: No Hx Anxiety: No Hx Bipolar Disorder: No Hx Depression: No Hx Emotional Abuse: No Hx Hallucinations: No Hx Panic Symptoms: No Hx Post Traumatic Stress Disorder: No Hx Psychosis: No Hx Physical Abuse: No Hx Schizophrenia: No Hx Sexual Abuse: No Hx Substance Use: No - SURGICAL HISTORY Hx Coronary Stent: Yes - ANESTHESIA Hx Anesthesia Reactions: Yes (agitation) Meds Allergies/Adverse Reactions: Allergies Allergy/AdvReac Type Severity Reaction Status Date / Time No Known Allergies Allergy Verified 03/17/18 19:21 - Medications Medications: Current Medications Sodium Chloride (Sodium Chloride 0.9%) 1,000 mls @ 100 mls/hr IV .Q10H KRISTEN Last Admin: 03/17/18 19:28 Dose: 100 mls/hr Physical Exam - Constitutional Appears: No Acute Distress - Head Exam Head Exam: ATRAUMATIC, NORMAL INSPECTION, NORMOCEPHALIC - Eye Exam Eye Exam: EOMI, Normal appearance, PERRL. absent: Scleral icterus Pupil Exam: NORMAL ACCOMODATION - ENT Exam ENT Exam: Mucous Membranes Moist - Neck Exam Additional comments: supple - Respiratory Exam Respiratory Exam: Clear to Auscultation Bilateral, NORMAL BREATHING PATTERN. absent: Rales, Rhonchi, Wheezes - Cardiovascular Exam Cardiovascular Exam: REGULAR RHYTHM, +S1, +S2. absent: Systolic Murmur - GI/Abdominal Exam GI & Abdominal Exam: Normal Bowel Sounds, Soft. absent: Distended, Guarding, Rigid, Tenderness - Extremities Exam Extremities exam: Positive for: normal capillary refill, pedal pulses present. Negative for: calf tenderness, pedal edema - Neurological Exam Neurological exam: Alert, CN II-XII Intact, Oriented x3, Reflexes Normal Additional comments: AAO x 3 No slur speech. Deepened nasal/labile fold on R Recall 3/3 in 5 mins with distraction Motor 5/5 Sensory intact Rapid alternating movement intact No drifting NIHSS 0 - Psychiatric Exam Psychiatric exam: Normal Affect, Normal Mood - Skin Skin Exam: Dry, Warm Results - Vital Signs Recent Vital Signs: Last Vital Signs Temp Pulse 73 03/17/18 20:40 Resp 17 03/17/18 20:40 BP 172/84 H 03/17/18 20:40 Pulse Ox 100 03/17/18 20:40 - Labs Result Diagrams: 03/17/18 19:07 03/17/18 19:07 Labs: Laboratory Results - last 24 hr 03/17/18 03/17/18 03/17/18 18:51 19:07 19:07 WBC 5.7 RBC 3.91 Hgb 12.2 Hct 35.4 L MCV 90.5 MCH 31.2 MCHC 34.5 RDW 13.3 Plt Count 286 MPV 8.8 Gran % 56.0 Lymph % (Auto) 27.1 [place] % (Auto) 11.8 H Eos % (Auto) 4.4 Baso % (Auto) 0.7 Gran # 3.18 Lymph # (Auto) 1.5 [place] # (Auto) 0.7 H Eos # (Auto) 0.3 Baso # (Auto) 0.04 PT 10.8 INR 0.95 APTT 29.7 Sodium Potassium Chloride Carbon Dioxide Anion Gap BUN Creatinine Est GFR ( Amer) Est GFR (Non-Af Amer) Random Glucose Calcium Total Bilirubin AST ALT Alkaline Phosphatase Troponin I Total Protein Albumin Globulin Albumin/Globulin Ratio Triglycerides Cholesterol LDL Cholesterol Direct HDL Cholesterol Blood Type O POSITIVE Antibody Screen Negative BBK History Checked No verified bt 03/17/18 19:07 WBC RBC Hgb Hct MCV MCH MCHC RDW Plt Count MPV Gran % Lymph % (Auto) [place] % (Auto) Eos % (Auto) Baso % (Auto) Gran # Lymph # (Auto) [place] # (Auto) Eos # (Auto) Baso # (Auto) PT INR APTT Sodium 140 Potassium 4.5 Chloride 104 Carbon Dioxide 22 Anion Gap 18 BUN 20 Creatinine 1.2 Est GFR ( Amer) 53 Est GFR (Non-Af Amer) 44 Random Glucose 159 H Calcium 9.2 Total Bilirubin 0.5 AST 25 ALT 27 Alkaline Phosphatase 136 H Troponin I < 0.01 Total Protein 7.0 Albumin 4.1 Globulin 2.9 Albumin/Globulin Ratio 1.4 Triglycerides 175 H Cholesterol 140 LDL Cholesterol Direct 53 HDL Cholesterol 54 Blood Type Antibody Screen BBK History Checked Assessment & Plan - Assessment and Plan (Free Text) Plan: Transient ischemic attack R/O stroke - VS stable. AAOx3. No need for ICU - Admit to telemetry - MRI brain without contrast, MRA of the head/neck without contrast - Echocardiogram with bubble study - Agree with neuro: Plavix 300 mg PO ONCE, and Aspirin 81 mg PO daily - Consider adding statin - Q 3 hour neuro-checks - PT/OT/ST eval and treatment - DVT Px - Case management consult - Check lipid panel, HbA1c, B12, folate, TSH, vitamin D level, homocysteine level - Fluids with NS at 100 mL/hr - Keep HOB at 30 degrees - [place] thick liquid pending swallow eval - Maintain blood glucose 140 - 180 - Maintain SBP 120-140 - Defer to primary team for management s/r/d/w Dr. Hwang <Giselle Hwang - Last Filed: 03/18/18 03:16> Meds - Medications Medications: Current Medications Aspirin (Ecotrin) 81 mg PO DAILY [facility] Heparin Sodium (Porcine) (Heparin) 5,000 units SC Q8 KRISTEN PRN Reason: Protocol Sodium Chloride (Sodium Chloride 0.9%) 1,000 mls @ 100 mls/hr IV .Q10H KRISTEN Last Admin: 03/17/18 19:28 Dose: 100 mls/hr Results - Vital Signs Recent Vital Signs: Last Vital Signs Temp 97.1 F L 03/18/18 01:43 Pulse 62 03/18/18 02:00 Resp 18 03/18/18 01:43 BP 175/82 H 03/18/18 01:43 Pulse Ox 100 03/18/18 00:25 - Labs Result Diagrams: 03/17/18 19:07 03/17/18 19:07 Labs: Laboratory Results - last 24 hr 03/17/18 22:40 Blood Type Confirm O POSITIVE Attending/Attestation - Attestation I have personally seen and examined this patient.: Yes I have fully participated in the care of the patient.: Yes I have reviewed all pertinent clinical information: Yes Notes (Text): 03/18/18 03:15 Patient was seen when she was in the CODE ROOM in the ER. Agree with history , phyiscial examination, assessment and plan.
[2018-03-17 22:18] LABS: URINE BILIRUBIN NEGATIVE (NEGATIVE); URINE BLOOD TRACE-INTACT (NEGATIVE); URINE GLUCOSE (UA) NEGATIVE (NEGATIVE); URINE LEUKOCYTE ESTERASE TRACE Leu/uL (NEGATIVE); URINE PROTEIN NEGATIVE mg/dL (<30 mg/dL); URINE UROBILINOGEN 0.2 E.U./dL (<1 E.U./dL)
[2018-03-17 22:20] LABS: URINE APPEARANCE CLEAR (CLEAR); URINE COLOR STRAW (YELLOW)
[2018-03-17 22:30] LABS: URINE BACTERIA NEG (NEG); URINE RBC 0 - 2 /hpf (0-2); URINE WBC 0 - 2 /hpf (0-6)
[2018-03-18 02:12] VITALS: BMI 25.0
[2018-03-18] MEDS: Sodium Chloride 0.9% 1,000 ML IV SCH ×2 (05:11→17:33)
[2018-03-18 07:09] LABS: BASO # 0.03 K/mm3 (0.0-2.0); BASO % 0.6 % (0.0-3.0); EOS # 0.2 (0.0-0.7); EOS % 4.8 % (1.5-5.0); GRAN # 2.67 (1.4-6.5); GRAN % 55.9 % (50.0-68.0); HEMOGLOBIN 10.3 g/dL (12.0-16.0); LYMPH # 1.2 (1.2-3.4); LYMPH % 25.3 % (22.0-35.0); MEAN CELL VOLUME 90.5 fl (80.0-105.0); MEAN CORPUSCULAR HEMOGLOBIN 30.5 pg (25.0-35.0); MEAN CORPUSCULAR HGB CONC 33.7 g/dl (31.0-37.0); MEAN PLATELET VOLUME 8.8 fl (7.0-11.0); MONO # 0.6 (0.1-0.6); MONO % 13.4 % (1.0-6.0); RBC 3.38 10^6/uL (3.5-6.1); RED CELL DISTRIBUTION WIDTH 13.5 % (11.5-14.5); WHITE BLOOD COUNT 4.8 10^3/ul (4.5-11.0)
[2018-03-18 08:00] LABS: ALB/GLOB RATIO 1.3 (1.1-1.8); ALBUMIN 3.2 g/dL (3.0-4.8); ALT/SGPT 18 U/L (7-56); AST/SGOT 24 U/L (14-36); BLOOD UREA NITROGEN 16 mg/dL (7-21); CALCIUM 8.8 mg/dL (8.4-10.5); GFR AFRICAN-AMERICAN 58; GFR NON-AFRICAN AMERICAN 48
--- NOTE | 2018-03-18 09:53 | HP ---
HISTORY OF PRESENT ILLNESS: The patient is a 77 year old woman with a past medical history of hypertension, hyperlipidemia and CAD s/p PCI with multiple stent placement who presented to [facility] by EMS accompanied with her family for evaluation of a sudden onset of dysarthria and expressive aphasia. The patient was reportedly in her usual state of healthy until approximately 6:00 p.m. on the day of presentation to the ED when she was noted by her family to have slurred speech and difficulty expressing her thoughts. Her family called 911 and the patient was brought immediately to [facility] ED for evaluation. By the time of arrival to the ED she had resolution of her symptoms. She was evaluated by Dr. Pereira of Neurology and during that examination she was able to speak coherently and had no focal neurological deficits with an NIHSS of 0. Given the resolution of her symptoms, she was not a candidate for tPA and was subsequently admitted to the telemetry pinon for continued management of TIA. PAST MEDICAL HISTORY: As per HPI, also, GERD, anxiety disorder, osteoarthritis and hypothyroidism. PAST SURGICAL HISTORY: Cholecystectomy, appendectomy and hysterectomy. ALLERGIES: NKDA. MEDICATIONS: Aspirin 81 mg p.o. daily, Simvastatin 40 mg p.o. daily, Toprol XL 25 mg p.o. daily, Omeprazole 40 mg p.o. daily and Xanax 0.25 mg p.o. b.i.d. FAMILY HISTORY: Significant for CAD and hypertension. SOCIAL HISTORY: The patient denies any history of smoking or illicit drug abuse. She does report social alcohol use. She ambulates with a cane secondary to her osteoarthritis but is fully independent in her ADLs. REVIEW OF SYSTEMS: A 14-point review of systems is negative except as per HPI. PHYSICAL EXAMINATION: VITAL SIGNS: Temperature 97.6, pulse 84, blood pressure 178/78, respiratory rate 20, oxygen saturation 98% on room air. GENERAL: Nontoxic-appearing woman, lying in bed, in no apparent distress. HEENT: Normocephalic, atraumatic. PERRL, EOMI. No scleral icterus. No conjunctival pallor. NECK: Supple with full range of motion. No JVD. No bruits. LUNGS: Clear to auscultation. CARDIOVASCULAR: Regular rate and rhythm. Normal S1 and S2. No murmurs. ABDOMEN: Normoactive bowel sounds. Soft, nontender and nondistended. EXTREMITIES: No edema. NEUROLOGIC: Awake, alert and oriented x 3. CN II-XII intact. Speech is fluent without aphasia or dysarthria. Sensation intact. Motor 5/5 in all extremities. LABORATORY DATA: WBC 4.8, hemoglobin 10, hematocrit 31, platelets 234. Chemistry reviewed and unremarkable. IMAGING STUDIES: 1. CT of the head demonstrates chronic small vessel ischemic changes with an old lacunar infarct in the left basal ganglia. 2. CTA of the head demonstrates no evidence of vascular pathology. 3. MRI of the brain pending. 4. MRA of the head and neck pending. ASSESSMENT: The patient is a 77 year old woman with multiple medical comorbidities who presented for evaluation of an acute onset of expressive aphasia and dysarthria with spontaneous resolution of symptoms by the time of ED evaluation and who was admitted to the telemetry pinon for management of TIA. PLAN: 1. TIA. Input from Dr. Pereira noted an appreciated. Neuroimaging studies reviewed. MRI of the brain without contrast and MRA of the head and neck without contrast is pending. Echocardiogram with bubble study is ordered and pending. Continue Aspirin 81 mg p.o. daily and Lipitor 40 mg p.o. daily. Continue with neuro checks every 2 hours. PT and OT evaluation is pending. Speech and swallow evaluation is pending. Keep head of bed at 30 degrees. 2. Hypertension. Resume Toprol XL 25 mg p.o. daily and adjust antihypertensives as needed. 3. CAD s/p PCI with multiple stent placement. Resume Aspirin 81 mg p.o. daily , Lipitor 40 mg p.o. daily and Toprol XL 25 mg p.o. daily. 3. Hyperlipidemia. Resume Lipitor at 40 mg p.o. daily. Repeat lipid panel is pending. 4. GERD. The patient is on Omeprazole at home however this is not on formulary , thus we will start Protonix 40 mg p.o. daily. 5. Anxiety disorder. We will continue to monitor and resume Xanax as needed. 6. Osteoarthritis. 7. Hypothyroidism. Labs demonstrate a TSH of 1.8. The patient furthermore is not on any medications at home. 9. Prophylaxis. Continue with Protonix for GI prophylaxis and heparin for DVT prophylaxis. CODE STATUS: Full code. Ramirez Vasquez MD [facility]
--- NOTE | 2018-03-18 09:55 | RAD ---
PROCEDURE: CHEST RADIOGRAPH, 1 VIEW HISTORY: Code Stroke COMPARISON: 10/26/2017 FINDINGS: LUNGS: No new focal infiltrate is seen. There is a poor expiratory effort noted. Calcified hilar lymph nodes are appreciated, unchanged. PLEURA: No pneumothorax or pleural fluid seen. CARDIOVASCULAR: Mild cardiomegaly, unchanged. OSSEOUS STRUCTURES: No significant abnormalities. VISUALIZED UPPER ABDOMEN: Normal. OTHER FINDINGS: None. IMPRESSION: No active disease.
--- NOTE | 2018-03-18 10:05 | CT ---
PROCEDURE: CT HEAD WITHOUT CONTRAST. HISTORY: Code Stroke COMPARISON: None available. TECHNIQUE: Axial computed tomography images were obtained through the head/brain without intravenous contrast. Radiation dose: Total exam DLP = 985 mGy-cm. This CT exam was performed using one or more of the following dose reduction techniques: Automated exposure control, adjustment of the mA and/or kV according to patient size, and/or use of iterative reconstruction technique. FINDINGS: HEMORRHAGE: No intracranial hemorrhage. BRAIN: No mass effect or edema. Mild age related cerebral atrophy is noted. There is a small chronic infarct within the posterior left basal ganglia region. Mild small vessel changes are seen elsewhere. No cortical effacement is seen. VENTRICLES: Unremarkable. No hydrocephalus. CALVARIUM: Unremarkable. PARANASAL SINUSES: Unremarkable as visualized. No significant inflammatory changes. MASTOID AIR CELLS: Unremarkable as visualized. No inflammatory changes. OTHER FINDINGS: None. IMPRESSION: No evidence of recent infarct. No cortical effacement or intracranial hemorrhage. Mild age related changes. This agrees with preliminary report. Emergency room physician was notified of the findings by the preliminary report physician. Please see preliminary report.
[2018-03-18] MEDS: Metoprolol Succinate 25 mg XL Tab PO SCH ×2 (10:35→13:09)
--- NOTE | 2018-03-18 10:41 | CT ---
PROCEDURE: CT Angiography of the head and neck with contrast HISTORY: code stroke COMPARISON: Noncontrast CT scan same day. TECHNIQUE: Contiguous axial images of the neck were obtained from the level of the skull-base to the superior mediastinum in the arteriographic phase of enhancement. Coronal and sagittal reformats or also generated. IV contrast dose: [address] exam was performed using one or more of the following dose reduction techniques: Automated exposure control, adjustment of the mA and/or kV according to patient size, and/or use of iterative reconstruction technique. Radiation dose: Total exam DLP = 424 mGy-cm. FINDINGS: RIGHT CAROTID ARTERIES: Common Carotid Artery: Mild atherosclerotic changes. Carotid Bifurcation: Mild atherosclerotic changes Internal Carotid Artery:Mild atherosclerotic change with mild luminal narrowing. There is a less than 30 percent luminal narrowing by NASCET criteria. External Carotid Artery (proximal branches): Unremarkable LEFT CAROTID ARTERIES: Common Carotid Artery: Normal. Carotid Bifurcation: Minor atherosclerotic change. Internal Carotid Artery:There is a less than 5 percent luminal narrowing by any is CT criteria. No significant luminal narrowing. External Carotid Artery (proximal branches): Normal. VERTEBRAL ARTERIES: Right Vertebral Artery: No significant stenosis of the proximal through mid vertebral artery on the right. Distal right vertebral artery is slightly smaller than the left. Left Vertebral Artery: There is some atherosclerotic change and luminal narrowing of the distal left vertebral artery at its proximal intracranial region. Vessel however appears to be patent. Remainder of the left vertebral artery is patent. OTHER FINDINGS: Chronic granulomatous changes are seen in the right upper lobe and right apex with calcified granuloma noted. Additionally there are scattered calcified lymph nodes seen in the upper mediastinum. Aorta is normal in outline without intimal flap. There is normal branch pattern of the aorta. There is a small subcentimeter low-density right lobe thyroid nodule or cyst. No further imaging workup suggested. No adenopathy is seen in the neck. Visualized sinuses and mastoid air cells are clear. Degenerative changes are seen in the cervical spine region. Bony structures are intact. CT angiography of the brain reveals no evidence of significant atherosclerotic narrowing of the distal intracranial internal carotid arteries or basilar artery. [place] Ped[place]en vessels are patent. No aneurysm is seen. Middle cerebral arteries and anterior cerebral arteries as well as posterior cerebral arteries are patent. No hyperenhancing lesions are seen. Retro-orbital regions are unremarkable. IMPRESSION: Mild atherosclerotic change of the right carotid bifurcation and internal carotid artery with 30 percent luminal narrowing. Mild atherosclerotic change of the left distal intracranial vertebral artery. No other stenosis within the brain noted. This agrees with the preliminary report provided by the on-call radiologist.
--- NOTE | 2018-03-18 11:20 | CARD ---
APPROVED REPORT EKG Measurement Heart [id number] <Conclusion> Normal sinus rhythm Rightward axis Nonspecific intraventricular block Cannot rule out Anterior infarct, age undetermined Abnormal ECG
--- NOTE | 2018-03-18 12:28 | CP.PCM.PN ---
Subjective - Date & Time of Evaluation Date of Evaluation: 03/18/18 Time of Evaluation: 12:26 - Subjective Subjective: Mrs. Lopez was seen and examined today at bedside. She states that she is feeling better, but still complains of some confusion and difficulty in saying the words she wants to say. There were no acute events overnight. Her speech was fluent and clear. Objective - Vital Signs/Intake and Output Vital Signs (last 24 hours): Temp Pulse Resp BP Pulse Ox 97.6 F 84 20 178/78 H 100 03/18/18 06:00 03/18/18 06:00 03/18/18 06:00 03/18/18 06:00 03/18/18 00:25 - Medications Medications: Current Medications Aspirin (Ecotrin) 81 mg PO DAILY [facility] Last Admin: 03/18/18 10:35 Dose: Not Given Atorvastatin Calcium (Lipitor) 40 mg PO DIN [facility] Heparin Sodium (Porcine) (Heparin) 5,000 units SC Q8 [facility] PRN Reason: Protocol Last Admin: 03/18/18 06:11 Dose: 5,000 units Sodium Chloride (Sodium Chloride 0.9%) 1,000 mls @ 100 mls/hr IV .Q10H [facility] Last Admin: 03/18/18 05:11 Dose: 100 mls/hr Metoprolol Succinate (Toprol Xl) 25 mg PO BRK [facility] Last Admin: 03/18/18 10:35 Dose: Not Given Pantoprazole Sodium (Protonix Ec Tab) 40 mg PO 0600 [facility] - Labs Labs: 03/18/18 06:00 03/18/18 06:00 PT 10.8 SECONDS (9.4-12.5) 03/17/18 19:07 INR 0.95 (0.93-1.08) 03/17/18 19:07 APTT 29.7 Seconds (25.1-36.5) 03/17/18 19:07 - Neurological Exam Neurological Exam: Alert, Awake, CN II-XII Intact, Normal Gait, Oriented x3 Neuro motor strength exam: Left Upper Extremity: 5, Right Upper Extremity: 5, Left Lower Extremity: 5, Right Lower Extremity: 5 Additional comments: NIHSS = 0 Assessment and Plan (1) Transient ischemic attack (TIA) Assessment & Plan: Will obtain MRI today and MRA of the head/neck without contrast. Continue TIA work-up as outlined in previous note. Continue aspirin 81 mg daily. Thank you. Status: Acute
[2018-03-18 13:46] LABS: FOLATE > 20.0 ng/mL
[2018-03-19] MEDS: Pantoprazole 40 mg EC Tab PO SCH (05:03)
[2018-03-19 07:20] LABS: BASO # 0.02 K/mm3 (0.0-2.0); BASO % 0.5 % (0.0-3.0); EOS # 0.2 (0.0-0.7); EOS % 5.1 % (1.5-5.0); GRAN # 2.24 (1.4-6.5); GRAN % 56.5 % (50.0-68.0); HEMOGLOBIN 9.8 g/dL (12.0-16.0); MEAN CELL VOLUME 90.7 fl (80.0-105.0); MEAN CORPUSCULAR HEMOGLOBIN 30.2 pg (25.0-35.0); MEAN CORPUSCULAR HGB CONC 33.3 g/dl (31.0-37.0); MEAN PLATELET VOLUME 8.8 fl (7.0-11.0); MONO # 0.5 (0.1-0.6); MONO % 11.9 % (1.0-6.0); RBC 3.24 10^6/uL (3.5-6.1); RED CELL DISTRIBUTION WIDTH 13.4 % (11.5-14.5)
--- NOTE | 2018-03-19 07:25 | CP.PCM.PN ---
Subjective - Date & Time of Evaluation Date of Evaluation: 03/19/18 Time of Evaluation: 07:23 - Subjective Subjective: Ms. Lopez was seen and examined at the bedside. She is alert, oriented with clear speech. She denies any headache, dizziness, lightheadedness, nause, or weakness. She is able to follow simple commands.There was no untoward events overnight. Objective - Vital Signs/Intake and Output Vital Signs (last 24 hours): Temp Pulse Resp BP Pulse Ox 97.4 F L 70 20 164/93 H 95 03/19/18 06:00 03/19/18 06:00 03/19/18 06:00 03/19/18 06:00 03/19/18 06:00 Intake and Output: 03/19/18 03/19/18 06:59 18:59 Intake Total 2500 Output Total 700 Balance 1800 - Medications Medications: Current Medications Aspirin (Ecotrin) 81 mg PO DAILY [facility] Last Admin: 03/18/18 13:09 Dose: 81 mg Atorvastatin Calcium (Lipitor) 40 mg PO DIN [facility] Last Admin: 03/18/18 17:37 Dose: 40 mg Heparin Sodium (Porcine) (Heparin) 5,000 units SC Q8 [facility] PRN Reason: Protocol Last Admin: 03/19/18 05:03 Dose: 5,000 units Sodium Chloride (Sodium Chloride 0.9%) 1,000 mls @ 100 mls/hr IV .Q10H [facility] Last Admin: 03/18/18 17:33 Dose: Not Given Metoprolol Succinate (Toprol Xl) 25 mg PO BRK [facility] Last Admin: 03/18/18 13:09 Dose: 25 mg Pantoprazole Sodium (Protonix Ec Tab) 40 mg PO 0600 [facility] Last Admin: 03/19/18 05:03 Dose: 40 mg - Labs Labs: 03/19/18 06:30 03/18/18 06:00 PT 10.8 SECONDS (9.4-12.5) 03/17/18 19:07 INR 0.95 (0.93-1.08) 03/17/18 19:07 APTT 29.7 Seconds (25.1-36.5) 03/17/18 19:07 - Constitutional Appears: No Acute Distress - Head Exam Head Exam: NORMAL INSPECTION - Neurological Exam Neurological Exam: Alert, Awake, CN II-XII Intact, Oriented x3 Neuro motor strength exam: Left Upper Extremity: 5, Right Upper Extremity: 5, Left Lower Extremity: 5, Right Lower Extremity: 5 Additional comments: Alert, oriented, clear speech, follows commands, and sensation is intact. Assessment and Plan (1) Transient ischemic attack (TIA) Assessment & Plan: Case discussed with Dr. Pereira. continue all current medical, physical, occupational, and speech therapies. Pending MRI and MRA of the head/neck without contrast. Recommend blood pressure control. Status: Acute
[2018-03-19 07:46] LABS: ALB/GLOB RATIO 1.2 (1.1-1.8); ALBUMIN 3.1 g/dL (3.0-4.8); CALCIUM 8.9 mg/dL (8.4-10.5)
[2018-03-19] MEDS: Metoprolol Succinate 25 mg XL Tab PO SCH (07:57)
[2018-03-19] MEDS: Sodium Chloride 0.9% 1,000 ML IV SCH ×3 (12:05→21:42)
--- NOTE | 2018-03-19 13:23 | MRI ---
PROCEDURE: Magnetic Resonance Angiography Brain HISTORY: TIA r/o stroke COMPARISON: None available. TECHNIQUE: 3D time of flight MR angiography of the intracranial arteries was performed. Rotating maximum intensity projection images were generated. FINDINGS: INTERNAL CAROTID ARTERIES: Unremarkable. The skull base, petrous, cavernous and supraclinoid segments are bilaterally widely patient. ANTERIOR CEREBRAL ARTERIES: Unremarkable. A1 and A2 segments are widely patent. Smaller distal branches unremarkable, as visualized. MIDDLE CEREBRAL ARTERIES: Unremarkable. M1 and M2 segments are widely patent. Perisylvian branches grossly symmetric. POSTERIOR CIRCULATION: Basilar Artery: Unremarkable. Distal Vertebral Arteries: Left vertebral artery is dominant. Both vertebral arteries however have adequate flow without stenosis. Posterior Cerebral Arteries: Unremarkable. Posterior Inferior Cerebellar Arteries: Unremarkable. ANEURYSM/ VASCULAR MALFORMATIONS: None. OTHER FINDINGS: None. IMPRESSION: No evidence of intracranial arterial stenosis of the distal internal carotid arteries, basilar artery, and/or [place] vasculature. Please see MRI brain report of same day.
--- NOTE | 2018-03-19 14:10 | MRI ---
PROCEDURE: MRI BRAIN WITHOUT CONTRAST HISTORY: TIA r/o stroke COMPARISON: CT head and CTA 03/17/2018 TECHNIQUE: Multiplanar, multisequence MR images of the brain were obtained without intravenous contrast enhancement. FINDINGS: HEMORRHAGE: Gradient images show no evidence of hemosiderin. DWI: Diffusion-weighted imaging shows evidence of linear areas of restricted perfusion in the left posterior temporoparietal lobe extending superiorly. Imaging findings are consistent with recent infarct. BRAIN PARENCHYMA: Mild amounts of edema are seen in the area of previously noted infarct above. This is seen on FLAIR and T2 weighted imaging. Mild diffuse cerebral cortical atrophy is noted as well as moderate microvascular small-vessel changes in the white matter tracts. Small probable perivascular space is seen in the medial left temporal lobe. No other area cortical effacement is seen. No new extra-axial collection is noted. No cerebellopontine angle mass is noted. Retro-orbital regions are unremarkable. No tonsillar ectopia is seen. Cervicomedullary junction is within normal limits. Mild hypertrophic degenerative changes are seen at C1-C2. No sellar masses are noted. VENTRICLES: Unremarkable. No hydrocephalus. CRANIUM: No abnormal marrow signal. ORBITS: Grossly unremarkable. PARANASAL SINUSES/MASTOIDS: Mild mucosal changes are seen in the sinuses without fluid level. VASCULAR SYSTEM: Skull base flow voids intact. OTHER FINDINGS: None. IMPRESSION: Recent left posterior temporoparietal infarct, possibly related to order shed infarct or small embolic infarct although no appreciable filling defect was seen on the MRA images or CT angiography images. No intracranial hemorrhage seen. Cerebral atrophy and mild to moderate small vessel changes elsewhere in the white matter tracts.
--- NOTE | 2018-03-19 14:48 | MRI ---
PROCEDURE: MR Angiography of the neck without contrast HISTORY: TIA r/o stroke COMPARISON: None available. TECHNIQUE: 3D [id number] angiography of the neck was performed. Rotating maximum intensity projection images of the cervical carotid and vertebral arteries were generated. The origins of the common carotid arteries were not visualized, which is a limitation inherent to the non-contrast time of flight technique. FINDINGS: RIGHT CAROTID ARTERIES: Common Carotid Artery: There is grossly normal branch pattern of the aorta. Right common carotid artery origin is widely patent. Right common carotid artery is patent to the bifurcation. Carotid Bifurcation: Very mild atherosclerotic plaque noted. Internal Carotid Artery:Mild atherosclerotic narrowing. This measures approximately 30 percent in luminal narrowing, however better appreciated on the CT angiography study. Please see that report. External Carotid Artery (proximal branches): Normal. LEFT CAROTID ARTERIES: Common Carotid Artery: Normal. Carotid Bifurcation: No significant atherosclerotic narrowing. Internal Carotid Artery:No significant narrowing. Less than 10 percent luminal narrowing by NASCET criteria. External Carotid Artery (proximal branches): Normal. VERTEBRAL ARTERIES: Right Vertebral Artery: Normal MRA appearance Left Vertebral Artery: Normal MRA appearance. Distal atherosclerotic change seen on the CTA is not as well appreciated on the MRA. OTHER FINDINGS: None. IMPRESSION: No evidence of significant atherosclerotic narrowing of the carotid bifurcation regions bilaterally.
--- NOTE | 2018-03-19 20:04 | PN ---
SUBJECTIVE: The patient was seen and examined at bedside on the telemetry pinon. No acute events overnight. She remains afebrile and hemodynamically stable. She has ongoing workup for her presentation with TIA. PHYSICAL EXAMINATION: VITAL SIGNS: Temperature 97.9, pulse 60, blood pressure 161/84, respiratory rate 18, oxygen saturation 95% on room air. GENERAL: No apparent distress. HEENT: PERRL. EOMI. No scleral icterus. No conjunctival pallor. NECK: Supple with full range motion. No JVD. No bruit. LUNGS: Clear to auscultation. CARDIOVASCULAR: Regular rate and rhythm. Normal S1 and S2. ABDOMEN: Normoactive bowel sounds. Soft, nontender, nondistended. EXTREMITIES: No edema. NEUROLOGIC: Awake, alert, and oriented x 3. CN II-XII intact. Speech is fluent. Sensation intact. Motor 5/5 in all extremities. LABORATORY DATA: WBC 4, hemoglobin 9.8, hematocrit 29, platelets 233. Chemistry reviewed and unremarkable. IMAGING STUDIES: 1. MRI of the brain without contrast demonstrates recent left posterior temporoparietal infarct. 2. MRA of the head demonstrates no evidence of intracranial stenosis. 3. MRA of the neck pending. ASSESSMENT: The patient is a 77 year old woman with multiple medical comorbidities who presented for evaluation of an acute onset of expressive aphasia and dysarthria with spontaneous resolution of symptoms by the time of ED evaluation and who was admitted to the telemetry pinon for management of TIA. PLAN: 1. TIA. Input from Dr. Pereira noted and appreciated. Neuroimaging studies reviewed. Continue with Aspirin 81 mg p.o. daily, Lipitor 40 mg p.o. daily, and Toprol XL 25 mg p.o. daily. PT and OT evaluation is pending. Speech and swallow evaluation appreciated and patient is on a heart-healthy diet. 2. Nonsustained V-tach. Input from Dr. Reyna appreciated. Echocardiogram is ordered and pending. We will monitor electrolytes and replete as needed. Continue with telemetry monitoring. 3. Hypertension. Blood pressure noted to be elevated. Continue Toprol XL 25 mg p.o. daily and we will start Lisinopril 10 mg p.o. daily. 4. CAD s/p PCI with multiple stent placement. Continue Aspirin 81 mg p.o. daily, Lipitor 40 mg p.o. daily and Toprol XL 25 mg p.o. daily. 5. Hyperlipidemia. Continue Lipitor 40 mg p.o. daily. 6. GERD. Continue Protonix 40 mg p.o. daily. 7. Anxiety disorder. 8. Osteoarthritis. 9. Prophylaxis. Continue Protonix for GI prophylaxis and heparin for DVT prophylaxis. CODE STATUS: Full code. Ramirez Vasquez MD [facility] # [id number] MTDD
--- NOTE | 2018-03-19 21:06 | CON ---
DATE: 03/19/2018 REASON FOR DICTATION: Covering Dr. Marco A Lees. TYPE OF DICTATION: Cardiac evaluation, 12 beats of VT, admitted with TIA, CVA type of symptoms. BRIEF CLINICAL HISTORY: This is a 77-year-old female with past medical history significant for hypertension; hyperlipidemia; coronary artery disease, status post PCI with multiple stents. Presented to [facility] with slurring of speech and weakness of right upper extremity while the patient was trying to wear the coat and speech became slurred. Elder daughter was there at that time. The patient was brought to the ER and the symptoms right away resolved. Did not receive a t-PA. While the patient was last night in telemetry, she had 12 beats of VT. Denies any chest pain, shortness of breath, any palpitation. PAST MEDICAL HISTORY: Significant for history of gastroesophageal reflux, anxiety disorder, osteoarthritis, history of hypothyroidism, history of coronary artery disease. PAST SURGICAL HISTORY: Significant for cholecystectomy, appendectomy and hysterectomy many years ago. ALLERGY: NO KNOWN DRUG ALLERGY. CURRENT MEDICATIONS: The patient at home was taking aspirin 81 mg daily, simvastatin 40 mg daily, omeprazole 40 mg daily, Xanax 0.25 mg daily, Toprol-XL 25 mg once a day. PREVIOUS CARDIAC WORKUP: As follows: The patient had echocardiography done on 04/01/2016 that shows mildly decreased LV function, segmental wall motion abnormality mildly left atrial dilated, mild to moderate mitral regurgitation, mild tricuspid regurgitation, mild pulmonary hypertension, RV systolic pressure 42. The patient had a stress test on 04/01/2016. Abnormal myocardial perfusion study, fixed defect, no reversible ischemia. Ejection fraction 50%. REVIEW OF SYSTEMS: As per HPI. PHYSICAL EXAMINATION: VITAL SIGNS: Temperature afebrile, heart rate 65, blood pressure 164/93. HEENT: PERRLA. Extraocular muscles intact. NECK: Supple. No carotid bruit or thyromegaly. CHEST: Clear to auscultation. HEART: S1 and S2 regular. ABDOMEN: Soft. EXTREMITIES: Clubbing and cyanosis negative. LABORATORY DATA: Blood workup as follows: WBC 4, hemoglobin 9.8, hematocrit 29.4, platelet count 233. Chemistry shows sodium 140, potassium , chloride 110, carbon dioxide 30, anion gap of 25, BUN 12, creatinine 1.1. IMPRESSION: Twelve beats of ventricular tachycardia, hemodynamically stable. Today's potassium is 4.1. Magnesium is not done. History of cardiomyopathy; history of coronary artery disease, status post percutaneous transluminal coronary angioplasty in 2011, multiple stents. Last stress test in 2016 essentially negative. Last echocardiogram with ejection fraction borderline. Calculated ejection fraction 50%. RECOMMENDATION: Resume beta-dale. Continue neuro workup. Check the magnesium level, lipid profile, TSH. Further recommendations depending on hospital course. We will transfer the care tomorrow to Dr. Lees. Conrad Reyna MD
[2018-03-20] MEDS: Sodium Chloride 0.9% 1,000 ML IV SCH ×2 (02:00→13:30)
[2018-03-20] MEDS: Pantoprazole 40 mg EC Tab PO SCH (05:47)
[2018-03-20 06:53] LABS: BASO # 0.02 K/mm3 (0.0-2.0); BASO % 0.5 % (0.0-3.0); EOS # 0.2 (0.0-0.7); EOS % 5.1 % (1.5-5.0); GRAN # 2.42 (1.4-6.5); GRAN % 58.9 % (50.0-68.0); HEMOGLOBIN 9.9 g/dL (12.0-16.0); LYMPH % 24.1 % (22.0-35.0); MEAN CORPUSCULAR HEMOGLOBIN 30.7 pg (25.0-35.0); MEAN CORPUSCULAR HGB CONC 33.8 g/dl (31.0-37.0); MONO # 0.5 (0.1-0.6); MONO % 11.4 % (1.0-6.0); RBC 3.22 10^6/uL (3.5-6.1); RED CELL DISTRIBUTION WIDTH 13.5 % (11.5-14.5); WHITE BLOOD COUNT 4.1 10^3/ul (4.5-11.0)
[2018-03-20 07:16] LABS: ALB/GLOB RATIO 1.3 (1.1-1.8); ALBUMIN 3.3 g/dL (3.0-4.8); CALCIUM 8.7 mg/dL (8.4-10.5)
[2018-03-20] MEDS: Metoprolol Succinate 25 mg XL Tab PO SCH (08:11)
--- NOTE | 2018-03-20 09:47 | PN ---
DATE: 03/20/2018 CARDIOLOGY FOLLOWUP SUBJECTIVE: The patient's speech impediment is now improved. PHYSICAL EXAMINATION: VITAL SIGNS: Stable. NECK: Negative JVD. LUNGS: Without rales. HEART: Reveals S1 and S2. EXTREMITIES: Without edema. LABORATORY DATA: Troponins are negative x1. IMPRESSION: 1. Transient ischemic attack. 2. Stable angina. 3. Coronary artery disease. 4. History of multiple stents in the past. 5. No significant carotid disease. PLAN: Given these findings, we will proceed with an echocardiogram, a bubble study to look for a patent foramen would be a reasonable study. Marco A Lees MD
--- NOTE | 2018-03-20 10:08 | PN ---
SUBJECTIVE: The patient was seen and examined at bedside on the telemetry pinon. No acute events overnight. She remains afebrile, hemodynamically stable and neurologically unchanged. This morning she reports feeling well, offers no complaints and is looking forward to being discharged home. PHYSICAL EXAMINATION: VITAL SIGNS: Temperature 97.7, pulse 62, blood pressure 165/80, respiratory rate 20, oxygen saturation 100% on room air. GENERAL: No apparent distress. HEENT: PERRL. EOMI. No scleral icterus. No conjunctival pallor. NECK: Supple with full range motion. No JVD. No bruit. LUNGS: Clear to auscultation. CARDIOVASCULAR: Regular rate and rhythm. Normal S1 and S2. ABDOMEN: Normoactive bowel sounds. Soft, nontender, nondistended. EXTREMITIES: No edema. NEUROLOGIC: Awake, alert, and oriented x 3. CN II-XII intact. Speech is fluent. Sensation intact. Motor 5/5 in all extremities. LABORATORY DATA: WBC 4.1, hemoglobin 9.9, hematocrit 29, platelets 237. Chemistry reviewed and unremarkable. IMAGING STUDIES: MRA of the neck demonstrates no significant atherosclerotic narrowing. ASSESSMENT: The patient is a 77 year old woman with multiple medical comorbidities who presented for evaluation of an acute onset of expressive aphasia and dysarthria with spontaneous resolution of symptoms by the time of ED evaluation who was admitted to the telemetry pinon for management of TIA. PLAN: 1. TIA. Input from Dr. Pereira noted and appreciated. Neuroimaging studies reviewed. The patient has demonstrated full neurologic recovery and exhibits no deficits. Continue Aspirin 81 mg p.o. daily, Lipitor 40 mg p.o. daily and Toprol XL 25 mg p.o. daily. 2. Nonsustained V-tach. Input from Dr. Reyna appreciated. Electrolytes reviewed and are normal. Echocardiogram is pending. We will continue with telemetry monitoring. 3. Hypertension. Blood pressure improved but remains elevated. Continue Toprol XL 25 mg p.o. daily and increase Lisinopril to 20 mg p.o. daily. 4. CAD s/p PCI with multiple stent placement. Continue Aspirin 81 mg p.o. daily, Lipitor 40 mg p.o. daily and Toprol XL 25 mg p.o. daily. 5. Hyperlipidemia. Continue Lipitor 40 mg p.o. daily. 6. GERD. Continue Protonix 40 mg p.o. daily. 7. Anxiety disorder. 8. Osteoarthritis. 9. Prophylaxis. Continue Protonix for GI prophylaxis and heparin for DVT prophylaxis. CODE STATUS: Full code. Ramirez Vasquez MD MTDJessica
--- NOTE | 2018-03-20 13:50 | CARD ---
APPROVED REPORT EXAM: Two-dimensional and M-mode echocardiogram with Doppler and color Doppler. INDICATION CVA/TIA BUBBLE STUDY,R/O PFO 2D DIMENSIONS IVSd1.2 (0.7-1.1cm)LVDd4.5 (3.9-5.9cm) PWd1.1 (0.7-1.1cm)LVDs3.2 (2.5-4.0cm) LVEF (%)25.0 (>50%) M-Mode DIMENSIONS Aortic Root3.30 (2.2-3.7cm)Aortic Cusp Exc.1.70 (1.5-2.0cm) Aortic Valve AoV Peak Wrtanfkt352.0cm/Steph Peak GR.9mmHg Mitral Valve MV E Lwipvicb51.8cm/sMV A Otpcbrmp218.0cm/sE/A ratio0.9 TDI Lateral E' Peak V9.55cm/sMedial E' Peak V10.10cm/sE/Lateral E'9.7 E/Medial E'9.2 Pulmonary Valve PV Peak Dctbmghk95.9cm/sPV Peak Grad.3mmHg Tricuspid Valve TR Peak Ltmciasf564xi/sRAP [id number] Peak Gr.38mmHg UATK60syFm LEFT VENTRICLE The left ventricle is normal size. There is normal left ventricular wall thickness. The systolic function is severely impaired. 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 There is normal right ventricular wall thickness. The right ventricular systolic function is normal. ATRIA The left atrium size is normal. The right atrium size is normal. AORTIC VALVE The aortic valve is mildly thickened. No aortic regurgitation is present. There is no aortic valvular stenosis. MITRAL VALVE The mitral valve is mildly thickened. Mitral regurgitation is moderate. TRICUSPID VALVE There is mild tricuspid regurgitation. There is mild pulmonary hypertension. GREAT VESSELS The aortic root is normal in size. PERICARDIAL EFFUSION There is a small loculated anterior pericardial effusion. <Conclusion> The left ventricle is normal size. There is normal left ventricular wall thickness. The systolic function is severely impaired. 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 There is mild tricuspid regurgitation. There is mild pulmonary hypertension.
--- NOTE | 2018-03-20 20:32 | CARD ---
APPROVED REPORT EKG Measurement Heart [id number] <Conclusion> Sinus bradycardia with marked sinus arrhythmia Right bundle branch block Anterior infarct, age undetermined Abnormal ECG
[2018-03-21] MEDS: Pantoprazole 40 mg EC Tab PO SCH (05:53)
[2018-03-21 06:15] VITALS: O2SAT 98
--- NOTE | 2018-03-21 09:19 | PN ---
SUBJECTIVE: The patient was seen and examined at bedside on the telemetry pinon. No acute events overnight. She remains afebrile, hemodynamically table and neurologically intact. This morning she feels great, offers no complaints and is looking forward to discharge to home. OBJECTIVE: VITAL SIGNS: Temperature 98.2, pulse 84, blood pressure 155/75, respiratory rate 20, oxygen saturation 98% on room air. GENERAL: No apparent distress. HEENT: PERRL, EOMI. No scleral icterus. No conjunctival pallor. NECK: Supple. Full range of motion. No JVD. No bruits. LUNGS: Clear to auscultation. CARDIOVASCULAR: Regular rate and rhythm. Normal S1 and S2. ABDOMEN: Normoactive bowel sounds. Soft, nontender and nondistended. EXTREMITIES: No edema. NEUROLOGIC: Awake, alert and oriented x 3. No focal motor deficits. LABORATORY DATA: No new labs. 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 ASSESSMENT: The patient is a 77 year old woman with multiple medical comorbidities who presented for evaluation of an acute onset of expressive aphasia and dysarthria with spontaneous resolution of symptoms by the time of ED evaluation who was admitted to the telemetry pinon for management of TIA. PLAN: 1. TIA. Input from Dr. Pereira greatly appreciated. Neuroimaging studies reviewed. The patient has demonstrated full neurologic recovery and exhibits no deficits. Continue Aspirin 81 mg p.o. daily, Lipitor 40 mg p.o. daily, Toprol XL 25 mg p.o. daily and Eliquis 5 mg p.o. b.i.d. 2. Apical thrombus. 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 The patient has been started on Eliquis 5 mg p.o. b.i.d. 3. Hypertension. Continue Toprol XL 25 mg p.o. daily and Lisinopril 20 mg p.o. daily. 4. CAD s/p PCI with multiple stent placement. Continue Aspirin 81 mg p.o. daily, Lipitor 40 mg p.o. daily and Toprol XL 25 mg p.o. daily. 5. Hyperlipidemia. Continue Lipitor 40 mg p.o. daily. 6. GERD. Continue Protonix 40 mg p.o. daily. 7. Anxiety disorder. 8. Osteoarthritis. 9. Prophylaxis. Continue Protonix for GI prophylaxis and heparin for DVT prophylaxis. 10. Disposition. The patient is stable for discharge to home today. CODE STATUS: Full code. Ramirze Vasquez MD [facility]
[2018-03-21] MEDS: Metoprolol Succinate 25 mg XL Tab PO SCH (09:30)
--- NOTE | 2018-03-21 10:39 | PN ---
DATE: 03/21/2018 SUBJECTIVE: The patient's neurologic symptoms have completely resolved. OBJECTIVE: VITAL SIGNS: On physical exam, blood pressure is 155/75, heart rate is in the 80s. NECK: Negative JVD. LUNGS: Without rales. HEART: S1, S2. EXTREMITIES: Without edema. DATA: Hemoglobin is 9.9. Chemistries: BUN and creatinine unremarkable. Potassium is 3.9. Echocardiogram reveals apical thrombus. The patient was started on Eliquis. Given these findings, the patient is hemodynamically stable. From a cardiac perspective, the patient should be discharged on low-dose aspirin as well as Eliquis. Risks and benefits have been discussed with the patient in detail. The patient is to be discharged today. Marco A Lees MD
[2018-03-21 14:11] VITALS: BP 170/73; PULSE 62; RESP 16; TEMP 97.9
--- NOTE | 2018-03-22 04:30 | DS ---
ADMITTING DIAGNOSIS: Transient ischemic attack. DISCHARGE DIAGNOSES: Transient ischemic attack and left ventricular apical thrombus. SECONDARY DIAGNOSES: Hypertension, CHF (systolic), CAD s/p PCI with multiple stent placement, hyperlipidemia, GERD, anxiety disorder and osteoarthritis of bilateral hips. CONSULTATIONS: Dr. Pereira (Neurology) and Dr. Lees (Cardiology). IMAGING STUDIES: 1. Chest x-ray demonstrated no active disease. 2. CT of the head without contrast demonstrated mild age-related changes with no intracranial hemorrhage. 3. CTA of the head and neck demonstrated mild atherosclerotic changes to the right carotid bifurcation with no significant stenosis. 4. MRI of the brain without contrast demonstrated a recent left posterior temporal parietal infarct possibly related to small embolic infarct. 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 HISTORY OF PRESENT ILLNESS: The patient is a 77 year old woman with a past medical history of hypertension, hyperlipidemia and CAD s/p PCI with multiple stent placement who presented to [facility] by EMS accompanied with her family for evaluation of a sudden onset of dysarthria and expressive aphasia. The patient was reportedly in her usual state of health until approximately 6 p.m. on the day of presentation to the ED when she was noted by her family to have slurred speech and difficulty expressing her thoughts. Her family called 911 and the patient was brought immediately to [facility] ED for evaluation. By the time of arrival to the ED she had resolution of her symptoms. She was evaluated by Dr. Pereira of Neurology and during that examination she was able to speak coherently and had no focal neurological deficits with an NIHSS score of 0. Given the resolution of her symptoms, she was not a candidate for tPA and was subsequently admitted to the telemetry pinon for continued management of TIA. HOSPITAL COURSE: Upon admission to the telemetry pinon she underwent multiple neuroimaging studies which confirmed the recent infarct. She was maintained on Aspirin 81 mg p.o. daily and Lipitor 40 mg p.o. daily. Over the following 36 hours, the patient was noted to have continued resolution of her presenting neurological symptoms and by hospital day #3, she exhibited no neurological deficits whatsoever. A TTE, performed as part of her stroke workup, demonstrated a left apical thrombus and the patient was placed on Eliquis 5 mg p.o. b.i.d. She was advised that her TIA was most likely secondary to her apical thrombus which had embolized. The remainder of the patient's hospital course was unremarkable and she was evaluated by PT and OT and was deemed an appropriate candidate for discharge home with outpatient PT services. By hospital day #4 she was deemed stable for discharge to home. CONDITION: Good, improved. DISPOSITION: Home. DISCHARGE MEDICATIONS: Simvastatin 40 mg p.o. daily, Toprol XL 25 mg p.o. daily, Aspirin 81 mg p.o. daily, Lisinopril 20 mg p.o. daily, Eliquis 5 mg p.o. b.i.d. and Xanax 0.25 mg p.o. b.i.d. DISCHARGE INSTRUCTIONS: The patient was advised that if she has any recurrence of her symptoms to present to her PMD or to the nearest ED immediately. The patient was also extensively counseled on the risks of increased bleeding while on Eliquis. FOLLOWUP: The patient to follow up with her PMD within 1 week of discharge. The patient to follow up with Dr. Lees as scheduled. Arrangements will be made for outpatient neurological followup. Ramirez Vasquez MD MTDD
== END 2018-03-21 15:23 | disposition home or self-care (01) | DRG 69 ==
LOC: ED 18:53 → ERH 21:39 → 2RNO 03-18 00:36
PROVIDERS: ADMIT Internal Medicine; ATTEND Internal Medicine
DX: G45.8 Other transient cerebral ischemic attacks and related syndromes (principal); I47.2 Ventricular tachycardia; I42.9 Cardiomyopathy, unspecified; R47.01 Aphasia; I50.20 Unspecified systolic (congestive) heart failure; I11.0 Hypertensive heart disease with heart failure; R47.1 Dysarthria and anarthria; I51.3 Intracardiac thrombosis, not elsewhere classified; M16.0 Bilateral primary osteoarthritis of hip; K21.9 Gastro-esophageal reflux disease without esophagitis; I25.118 Atherosclerotic heart disease of native coronary artery with other forms of angina pectoris; F41.9 Anxiety disorder, unspecified; E78.5 Hyperlipidemia, unspecified; E03.9 Hypothyroidism, unspecified; Z95.5 Presence of coronary angioplasty implant and graft; Z79.82 Long term (current) use of aspirin; Z79.01 Long term (current) use of anticoagulants

== ENCOUNTER 2019-01-14 17:29 | Observation (INO) | payer MEDICARE ==
[2019-01-14 18:47] LABS: VENOUS BLOOD GAS BASE EXCESS 2.2 mmol/L (0.0-2.0); VENOUS BLOOD GAS PO2 28 mm/Hg (30-55); VENOUS BLOOD PH 7.41 (7.32-7.43)
[2019-01-14 19:31] LABS: ALB/GLOB RATIO 1.4 (1.1-1.8); ALBUMIN 3.7 g/dL (3.0-4.8); ALT/SGPT 7 U/L (7-56); AST/SGOT 21 U/L (14-36); BLOOD UREA NITROGEN 13 mg/dL (7-21); CALCIUM 8.9 mg/dL (8.4-10.5); GFR NON-AFRICAN AMERICAN 43
[2019-01-14 19:32] LABS: BASO # 0.04 K/mm3 (0.0-2.0); BASO % 0.5 % (0.0-3.0); EOS # 0.1 (0.0-0.7); EOS % 1.5 % (1.5-5.0); HEMOGLOBIN 11.5 g/dL (12.0-16.0); LYMPH # 0.8 (1.2-3.4); LYMPH % 10.1 % (22.0-35.0); MEAN CELL VOLUME 92.5 fl (80.0-105.0); MEAN CORPUSCULAR HGB CONC 33.5 g/dl (31.0-37.0); MEAN PLATELET VOLUME 8.8 fl (7.0-11.0); MONO # 0.8 (0.1-0.6); MONO % 10.5 % (1.0-6.0); RBC 3.71 10^6/uL (3.5-6.1); RED CELL DISTRIBUTION WIDTH 13.5 % (11.5-14.5); WHITE BLOOD COUNT 7.9 10^3/uL (4.5-11.0)
[2019-01-14 19:34] LABS: INR 1.45; PARTIAL THROMBOPLASTIN TIME 33.4 Seconds (26.9-38.3); PROTHROMBIN TIME 16.1 SECONDS (9.4-12.5)
[2019-01-14 19:40] LABS: B-TYPE NATRIURETIC PEPTIDE 835 pg/mL (0-450); TROPONIN I < 0.01 ng/mL
--- NOTE | 2019-01-14 19:42 | ED PDOC ---
Arrival/HPI - General Chief Complaint: Headache Time Seen by Provider: 01/14/19 19:23 Historian: Patient, Family - History of Present Illness Narrative History of Present Illness (Text): 01/14/19 20:11 Patient is a 78 yo female with past medical hx of CVA, hx of sarcoidosis, presents to the Emergency Department today with hx of cough, bodyaches, shortness of breath, and headache since this morning. Patient states she was "feeling ok yesterday", then woke up with coughing and hoarse voice and bodyaches. Later in the afternoon she developed generalized headache. Not sudden onset or "worse in life". Denies speech or vision difficulties. Denies acute gait difficulties. Family denies change in mental status or speech. Denies sore throat or rash. No hemoptysis. Denies abdominal pain. Time/Duration: Prior to Arrival Symptom Onset: Gradual Past Medical History - Past History Past History: No Previous - Infectious Disease Hx of Infectious Diseases: None - Tetanus Immunization Tetanus Immunization: Unknown - Reproductive Menopause: Yes - Cardiac Hx KS: Yes Hx Hypertension: Yes Other/Comment: cardiac stent - Pulmonary Hx Respiratory Disorders: Yes (Sarcoidosis) - Neurological Hx Neurological Disorder: Yes HX Cerebrovascular Accident: Yes (2018) Hx Dizziness: Yes Hx Transient Ischemic Attacks (TIA): Yes - HEENT Other/Comment: Blurred vision - Renal Hx Renal Disorder: No - Endocrine/Metabolic Hx Hypothyroidism: Yes - Hematological/Oncological Hx Anemia: Yes (blood transfusions) Hx Shingles: Yes - Integumentary Hx Dermatological Disorder: No - Musculoskeletal/Rheumatological Hx Arthritis: Yes (L knee) - Gastrointestinal Hx Gastrointestinal Disorders: Yes (hemmorhoids) Hx Diverticulitis: Yes Hx Gall Bladder Disease: Yes - Genitourinary/Gynecological Hx Genitourinary Disorders: No - Psychiatric Hx Anxiety: Yes Hx Substance Use: No - Surgical History Hx Appendectomy: Yes Hx Cardiac Catheterization: Yes Hx Cholecystectomy: Yes Hx Coronary Stent: Yes (6) Hx Hysterectomy: Yes Hx Musculoskeletal Surgery: Yes Hx Orthopedic Surgery: Yes - Anesthesia Hx Anesthesia Reactions: Yes (agitation) - Suicidal Assessment Feels Threatened In Home Enviroment: No Family/Social History Family/Social History: Unknown Family HX Smoking Status: Former Smoker Hx Alcohol Use: No Hx Substance Use: No Allergies/Home Meds Allergies/Adverse Reactions: Allergies metronidazole [From Flagyl] Allergy (Verified 01/14/19 17:46) RASH Home Medications: Home Meds Medication Instructions Recorded Confirmed Alprazolam [Xanax] 0.25 mg PO BID PRN 04/02/16 01/14/19 Simvastatin 40 mg PO DAILY 04/02/16 01/14/19 Metoprolol Succinate XL [Toprol XL] 25 mg PO DAILY 03/17/18 01/14/19 Omeprazole 40 mg PO DAILY 01/14/19 01/14/19 Review of Systems - Review of Systems Constitutional: Fatigue, Fevers Eyes: absent: Vision Changes, Eye Pain ENT: Voice Changes, Rhinorrhea, Sinus Congestion. absent: Hearing Changes, Sore Throat Respiratory: SOB, Cough Cardiovascular: LEIJA. absent: Chest Pain, Palpitations, Calf Pain Gastrointestinal: Appetite Changes. absent: Abdominal Pain, Nausea, Vomiting Genitourinary Female: absent: Dysuria, Frequency Musculoskeletal: Arthralgias, Myalgias Skin: absent: Rash Neurological: Headache. absent: Dizziness, Focal Weakness, Gait Changes Endocrine: absent: Polyuria Hemo/Lymphatic: absent: Easy Bleeding Psychiatric: absent: Depression Physical Exam - Physical Exam Narrative Physical Exam (Text): Head: Atraumatic. Normocephalic. Eyes: PERRL. EOMI. Conjunctivae are not pale. ENT: Mucous membranes are moist and intact. Oropharynx is clear and symmetric. Neck: Supple. Full ROM. No JVD. No lymphadenopathy. Paraspinal tenderness but no meningismus. Cardiovascular: Regular rate. Regular rhythm. No murmurs, rubs, or gallops. Distal pulses are 2+ and symmetric. Pulmonary/Chest: Expiratory wheezing with bronchial breath sounds. No accessory muscle usage. Abdominal: Soft and non-distended. There is no tenderness. No rebound, guarding, or rigidity. No organomegaly. Good bowel sounds. Back: No CVA tenderness. Extremities: No edema. No cyanosis. No clubbing. She has pain with range of motion of knees states this is chronic. Skin: Skin is warm and dry. No petechiae. No purpura. Neurological: Alert, awake, and oriented. No facial droop. No slurred speech. Visual acuity and visual lafleur intact. No focal motor or sensory deficits. Normal gait. Psychiatric: normal affect Vital Signs Reviewed: Yes Vital Signs Temp Pulse Resp BP Pulse Ox 01/14/19 18:47 100.2 F H 01/14/19 17:41 98.4 F 96 H 20 136/82 96 Temperature: Febrile Appearance: Positive for: Ill-Appearing Pain Distress: Mild Finger Stick Blood Glucose: 147 - Systems Exam Head: Present: Atraumatic Pupils: Present: PERRL Mouth: Present: Moist Mucous Membranes Pharnyx: No: ERYTHEMA Nose (Internal): Present: Normal Inspection Neck: Present: Normal Range of Motion, Paraspinal Tenderness, Trachea Midline. No: Meningeal Signs, MIDLINE TENDERNESS Respiratory/Chest: Present: Wheezes. No: Respiratory Distress Cardiovascular: Present: Regular Rate and Rhythm, Murmurs Abdomen: No: Tenderness, Distention Back: No: CVA Tenderness Upper Extremity: No: Edema Lower Extremity: Present: Neurovascularly Intact. No: Edema, CALF TENDERNESS Neurological: Present: GCS=15, CN II-XII Intact, Speech Normal, Motor Func Ronda ssly Intact, Normal Sensory Function, Memory Normal Skin: Present: Warm Psychiatric: Present: Alert, Oriented x 3, Normal Insight, Normal Concentration Medical Decision Making ED Course and Treatment: 01/14/19 20:18 Patient on examination with mild wheezing noted. She has low grade fever, but blood pressure stable, not tachycardic. Initial lactate unremarkable. She has some palpable muscular neck pain with no neuro deficits and not worst headache in life. No photophobia. Headache improved with tylenol. Family denies any speech or mental status changes and patient patient is neurologically intact with serial exams. Symptoms consistent with possible influenza despite evaluation of initial labs, thus tamiflu ordered. CXR appears unchanged from previous, there are some perihilar changes that infiltrate cannot be excluded, will initiate antibiotics. CT head pending at this time. Given wheezing, neb ordered, plan to admit for observation given symptoms and associated comorbities. Have reviewed observation admission with pmd Dr. Gali Vasquez and patient and family, who are agreeable to plan. Wheezing improved but persistent after nebulizer. Headache improved. - Lab Interpretations Lab Results: pO2 28 mm/Hg (30-55) L 01/14/19 18:31 VBG pH 7.41 (7.32-7.43) 01/14/19 18:31 VBG pCO2 43.0 (40-60) 01/14/19 18:31 VBG HCO3 27.3 mmol/l (21-28) 01/14/19 18:31 VBG Total CO2 28.6 mmol.L (22-28) H 01/14/19 18:31 VBG O2 Sat (Calc) 56.7 % (40-65) 01/14/19 18:31 VBG Base Excess 2.2 mmol/L (0.0-2.0) H 01/14/19 18:31 VBG Potassium 4.4 mmol/L (3.6-5.2) 01/14/19 18:31 Sodium 135.0 mmol/L (132-148) 01/14/19 18:31 Chloride 103.0 mmol/L (98-107) 01/14/19 18:31 Glucose 158 mg/dl (65-105) H 01/14/19 18:31 Lactate 1.0 mmol/L (0.7-2.1) 01/14/19 18:31 FiO2 21.0 % 01/14/19 18:31 PT 16.1 SECONDS (9.4-12.5) H 01/14/19 18:41 INR 1.45 01/14/19 18:41 APTT 33.4 Seconds (26.9-38.3) 01/14/19 18:41 Troponin I < 0.01 ng/mL 01/14/19 18:41 NT-Pro-B Natriuret Pep 835 pg/mL (0-450) H 01/14/19 18:41 Total Bilirubin 0.7 mg/dL (0.2-1.3) 01/14/19 18:41 AST 21 U/L (14-36) 01/14/19 18:41 ALT 7 U/L (7-56) 01/14/19 18:41 Alkaline Phosphatase 120 U/L (38-126) 01/14/19 18:41 Total Protein 6.4 g/dL (5.8-8.3) 01/14/19 18:41 Albumin 3.7 g/dL (3.0-4.8) 01/14/19 18:41 Globulin 2.7 gm/dL 01/14/19 18:41 Albumin/Globulin Ratio 1.4 (1.1-1.8) 01/14/19 18:41 - RAD Interpretation Radiology Orders: 01/14/19 18:23 HEAD W/O CONTRAST [CT] Stat CHEST PORTABLE [RAD] Stat - EKG Interpretation EKG Interpretation (Text): 01/14/19 20:15 EKG at 1851 normal sinus rhythm rate of 80 right bundle branch block Interpreted by ED Physician: Yes Type: 12 lead EKG - Medication Orders Current Medication Orders: Discontinued Medications Acetaminophen (Tylenol 325mg Tab) 650 mg PO ONCE STA Stop: 01/14/19 19:24 Last Admin: 01/14/19 19:35 Dose: 650 mg Disposition/Present on Arrival - Present on Arrival Any Indicators Present on Arrival: No History of DVT/PE: No History of Uncontrolled Diabetes: No Urinary Catheter: No History of Decub. Ulcer: No History Surgical Site Infection Following: None - Disposition Have Diagnosis and Disposition been Completed?: Yes Diagnosis: Influenza, Wheezing, Cough, Myalgia Disposition: HOSPITALIZED Disposition Time: 20:21 Patient Plan: Observation Patient Problems: Current Active Problems Problem Status Onset Influenza Acute Wheezing Acute Condition: FAIR
[2019-01-14] MEDS ORDERED: Albuterol-Ipratrop 3 mg / 0.5 (3 ml) UD IH STA (19:54)
[2019-01-14] MEDS ORDERED: cefTRIAXone 1 gm 1 GM/100 ML BAG IVPB STA (20:02)
[2019-01-14] MEDS ORDERED: Albuterol-Ipratrop 3 mg / 0.5 (3 ml) UD IH PRN (21:27)
[2019-01-14] MEDS: Albuterol-Ipratrop 3 mg / 0.5 (3 ml) UD IH SCH (21:34)
[2019-01-14 22:09] LABS: URINE BILIRUBIN NEGATIVE (NEGATIVE); URINE BLOOD TRACE-INTACT (NEGATIVE); URINE GLUCOSE (UA) NEGATIVE (NEGATIVE); URINE LEUKOCYTE ESTERASE SMALL Leu/uL (NEGATIVE); URINE PROTEIN NEGATIVE mg/dL (<30 mg/dL); URINE UROBILINOGEN 0.2 E.U./dL (<1 E.U./dL)
[2019-01-14 22:13] LABS: URINE APPEARANCE CLEAR (CLEAR); URINE COLOR YELLOW (YELLOW)
[2019-01-14 22:21] VITALS: PULSE 90
[2019-01-14 23:16] VITALS: RESP 20; BMI 24.6
[2019-01-15] MEDS: Albuterol-Ipratrop 3 mg / 0.5 (3 ml) UD IH SCH ×3 (01:14→13:27)
[2019-01-15] MEDS ORDERED: Metoprolol Succinate 25 mg XL Tab PO SCH (08:00)
[2019-01-15 08:37] VITALS: BP 132/71
--- NOTE | 2019-01-15 09:20 | CARD ---
APPROVED REPORT Date of service: 01/14/2019 EKG Measurement Heart [id number] <Conclusion> Normal sinus rhythm Right bundle branch block Abnormal ECG
[2019-01-15 09:26] VITALS: TEMP 98.5; O2SAT 98
[2019-01-15] MEDS ORDERED: cefTRIAXone 1 gm 1 GM/100 ML BAG IVPB SCH (10:00)
--- NOTE | 2019-01-15 10:58 | CT ---
Date of service: 01/14/2019 PROCEDURE: CT HEAD WITHOUT CONTRAST. HISTORY: Headache on eliquis COMPARISON: None available. TECHNIQUE: Axial computed tomography images were obtained through the head/brain without intravenous contrast. Radiation dose: Total exam DLP = 908.9 mGy-cm. This CT exam was performed using one or more of the following dose reduction techniques: Automated exposure control, adjustment of the mA and/or kV according to patient size, and/or use of iterative reconstruction technique. FINDINGS: HEMORRHAGE: No acute parenchymal, subarachnoid or extra-axial hemorrhage. BRAIN: Chronic left posterior frontoparietal infarct near vertex. Moderate chronic periventricular white matter ischemic changes seen extending peripherally into the deep and subcortical white matter both cerebral hemispheres. There is a small on chronic appearing lacunar type infarct versus dilated perivascular space left posterolateral basal ganglia.. Note the possibility of a small hyperacute infarct cannot be excluded on this study. Moderate generalized volume loss. Mild vascular calcifications both carotid siphons and left vertebral artery. VENTRICLES: No obstructive hydrocephalus. CALVARIUM: There are no acute calvarial fracture seen old fracture deformity left lamina papyracea with collapse of several adjacent left-sided ethmoid air cells which are partially opacified. PARANASAL SINUSES: As above. Minimal mucosal thickening and/or tiny fluid level left maxillary antrum. MASTOID AIR CELLS: Unremarkable as visualized. No inflammatory changes. OTHER FINDINGS: None. IMPRESSION: No acute intracranial hemorrhage. Chronic left posterior frontoparietal infarct near the vertex. Moderate chronic periventricular white matter ischemic changes Moderate generalized volume loss See above discussion for additional details and findings
--- NOTE | 2019-01-15 13:23 | RAD ---
Date of service: 01/14/2019 HISTORY: Weakness COMPARISON: Comparison made with chest radiograph and CTA of the neck and brain both dated 03/17/2018. Note that the latter study also imaged the lung apices in 3 planes. FINDINGS: LUNGS: There appears to be some minimal left basilar atelectasis and or scarring small calcified granuloma left lateral lower lung field. Noted localized right apical pleural thickening and parenchymal scarring is well as a few calcified granulomata less well seen on this as compared to prior CTA chest... Heart appears Calcified mediastinal and hilar lymph nodes again seen. PLEURA: No significant pleural effusion identified, no pneumothorax apparent. CARDIOVASCULAR: No aortic atherosclerotic calcification present. Heart appears borderline-mildly enlarged. No pulmonary vascular congestion. OSSEOUS STRUCTURES: No significant abnormalities. VISUALIZED UPPER ABDOMEN: Normal. OTHER FINDINGS: None. IMPRESSION: There appears to be some minimal left basilar atelectasis and or scarring small calcified granuloma left lateral lower lung field. Few calcified granulomata right lung apex also poorly seen. Localized right apical pleural thickening and parenchymal scarring as well as a few calcified granulomata right lung apex also poorly seen compared to prior CT chest thickening of poorly seen Calcified mediastinal and bilateral hilar lymph nodes are present.
--- NOTE | 2019-01-15 20:58 | HP ---
HISTORY OF PRESENT ILLNESS: The patient is a 78-year-old woman with multiple medical comorbidities who presented for evaluation of a several day history of fevers, chills, rigors, myalgias, arthralgias and cough productive of green sputum. She was in her usual state of health until approximately 3-4 days prior to presentation to the ED when she developed the aforementioned symptoms. Over the next 48 hours she developed significant malaise and weakness. On the day of presentation to the ED she reported dyspnea with exertion which prompted her ED evaluation. In the ED she was afebrile, hemodynamically stable and with largely unremarkable laboratory studies. On physical examination she was noted to have significant wheeze despite multiple bronchodilator treatments. Given her respiratory symptoms she was admitted to the general medical pinon for continued bronchodilator treatment and management of a suspected viral illness. PAST MEDICAL HISTORY: CAD s/p PCI with multiple stent placement, hypertension, hyperlipidemia, GERD, anxiety disorder, osteoarthritis of both hips, history of left apical thrombus and history of TIA. PAST SURGICAL HISTORY: Cholecystectomy, appendectomy and hysterectomy. ALLERGIES: NKDA. MEDICATIONS: Simvastatin 40 mg p.o. daily, Toprol XL 25 mg p.o. daily, Lisinopril 20 mg p.o. daily, Aspirin 81 mg p.o. daily, Eliquis 5 mg p.o. b.i.d., Protonix 40 mg p.o. daily, Xanax 0.25 mg p.o. b.i.d and Meloxicam 15 mg p.o. daily. FAMILY HISTORY: Significant for CAD and hypertension. SOCIAL HISTORY: The patient denies history of smoking or illicit drug abuse. She reports social alcohol use. She ambulates with a cane but is fully independent in her ADLs. REVIEW OF SYSTEMS: A 12-point review of systems is negative except as per HPI. PHYSICAL EXAMINATION: VITAL SIGNS: Temperature 99, pulse 90, blood pressure 132/71, respiratory rate 20, oxygen saturation 97% on room air. GENERAL: Nontoxic woman, sitting up in bed, in no apparent distress. HEENT: PERRL, EOMI. No scleral icterus. No conjunctival pallor. NECK: Supple with full range of motion. No JVD. No bruits. LUNGS: Clear to auscultation. CARDIOVASCULAR: Regular rate and rhythm. Normal S1 and S2. ABDOMEN: Normoactive bowel sounds, soft, nontender, nondistended. EXTREMITIES: No edema. NEUROLOGIC: Awake, alert and oriented x 3. No focal motor deficits. LABORATORY DATA: WBC 7.9, hemoglobin 11.5, hematocrit 34, platelets 217. Sodium 134, potassium 4.3, chloride 103, bicarb 26, BUN 13, creatinine 1.2, glucose 145. Troponin < 0.01. BNP 835. Influenza serology negative. IMAGING STUDIES: 1. Chest x-ray demonstrates perihilar congestion. 2. CT of the head without contrast pending. ASSESSMENT: The patient is a 78-year-old woman with multiple medical comorbidities who presented for evaluation of a several day history of fevers, chills, rigors and malaise and was admitted for management of URI. PLAN: 1. URI, improving. The patient reports near resolution of her respiratory symptoms s/p multiple bronchodilator treatments 2. History of TIA. Continue Aspirin 81 mg p.o. daily and Simvastatin 40 mg p.o. daily. 3. History of left apical thrombus. Continue Aspirin 81 mg p.o. daily, Eliquis 5 mg p.o. b.i.d. and Simvastatin 40 mg p.o. daily. 4. Hypertension. Blood pressure controlled. Continue Toprol XL 25 mg p.o. daily and Lisinopril 20 mg p.o. daily. 5. CAD s/p PCI with multiple stent placement. Continue Aspirin 81 mg p.o. daily, Simvastatin 40 mg p.o. daily and Toprol XL 25 mg p.o. daily. 6. Hyperlipidemia. Continue Simvastatin 40 mg p.o. daily. 7. GERD. Continue Protonix 40 mg p.o. daily. 8. Anxiety disorder. Continue Xanax 0.25 mg p.o. b.i.d. 9. Osteoarthritis. The patient to resume Meloxicam 15 mg p.o. daily upon discharge. 10. Prophylaxis. GI prophylaxis not indicated as the patient is eating. DVT prophylaxis not indicated as the patient remains on Eliquis. CODE STATUS: Full Code. Ramirez Vasquez MD [facility] # [id number] MTDD
== END 2019-01-15 14:10 | disposition home or self-care (01) ==
LOC: ED 17:29 → ERH 20:31 → 5RNO 22:34
PROVIDERS: ADMIT Student in an Organized Health Care Education/Training Program; ATTEND Student in an Organized Health Care Education/Training Program
DX: J06.9 Acute upper respiratory infection, unspecified (principal); I10 Essential (primary) hypertension; I25.10 Atherosclerotic heart disease of native coronary artery without angina pectoris; E03.9 Hypothyroidism, unspecified; E78.5 Hyperlipidemia, unspecified; M16.0 Bilateral primary osteoarthritis of hip; K21.9 Gastro-esophageal reflux disease without esophagitis; F41.9 Anxiety disorder, unspecified; Z95.5 Presence of coronary angioplasty implant and graft; Z86.73 Personal history of transient ischemic attack (TIA), and cerebral infarction without residual deficits
CPT/HCPCS: 70450; 71045; 80053; 81001; 82550; 82803; 82948; 83615; 83735; 83880; 84484; 85025; 85610; 85730; 87040; 87086; 87804; 93005; 94640; 96365; 99285; G0328; G0378; J0696